=== PATIENT | female | born 1985 | race Caucasian/White ===

== ENCOUNTER 2022-01-22 07:31 | Inpatient (IN) ==
[2022-01-22] MEDS ORDERED: OXYTOCIN 30 UNITS/500 ML BAG IV PRN ×2 (07:40)
--- NOTE | 2022-01-22 07:49 | History & Physical Report ---
Date of Service January 22, 2022 Assessment & Plan (1) Encounter for induction of labor: Plan: Pt is a female at 39 5/7 gestation presenting to L&D for IOL. complicated by AMA, GDM on insulin, and obesity. -Admit patient to L&D for IOL, expect -Rubella immune, GBS-, COVID vaccinated x3 -Q1h glucose checks -COVID negative -Pitocin started as hassan bulb has yet to fall out -epidural prn for pain control -AROM if indicated -routine labs Admission and Anticipated Discharge Date Admission Date: January 22, 2022 History of Present Illness Chief Complaint: IOL Primary Care Provider: NO PCP Pt is a 36 y/o female at 39 5/7 weeks gestation presenting to the L&D unit for IOL. complicated by AMA, GDM on insulin, and obesity. PMH includes migraines controlled with Excedrin. Prior to coming to the hospital, pt was on 70 units of long insulin at night and 20-25 units of short acting insulin at mealtime depending on number of carbs. Pt is having good movement at 2-3 movements per hour and is having cramping. Pt had a hassan placed yesterday for cervical ripening that did not fall out. She did report a small amount of bleeding yesterday from the hassan, but did not have a gush of fluid. Pt is GBS-. Pt would like an epidural when available. 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 Otherwise no additional concerns this morning. Allergies Allergy/AdvReac Type Severity Reaction Status Date / Time No Known Allergies Allergy Verified 01/22/22 07:49 Home Medications Medication Instructions Recorded Confirmed Type prenat.vits,kaylin,xax-laos-bosri 1 tab PO DAILY 08/07/21 01/22/22 History acetone (urine) test (Ketone Urine #50 ea 09/07/21 01/19/22 Rx Test) blood sugar diagnostic ([employer]Touch #150 ea 09/07/21 01/19/22 Rx Verio test strips) blood-glucose meter (OneTouch #1 ea 09/07/21 01/19/22 Rx Verio Flex meter) lancets 33 gauge (OneTouch Delica #150 ea 09/07/21 01/19/22 Rx Plus Lancet) pen needle, diabetic 32 gauge x #50 ea 10/03/21 01/19/22 Rx 5/32" (BD Ultra-Fine Sonali Pen Needle) insulin aspart U-100 100 unit/mL See Rx Instructions SUBCUT TID #15 12/04/21 01/22/22 Rx (3 mL) subcutaneous pen (Novolog ml Flexpen U-100 Insulin aspart) insulin NPH isoph U-100 human 100 70 unit SUBCUT QPM 01/22/22 01/22/22 History unit/mL (3 mL) subcutaneous pen (Novolin N Flexpen) Patient History Medical History (Updated 01/22/22 @ 07:48 by Jed Adorno DO) Abnormal Pap smear of cervix Chicken pox Gestational diabetes On insulin History of COVID-19 06/2021 and 12/2021 PCOS (polycystic ovarian syndrome) Surgical History History of cholecystectomy History of tonsillectomy [place] teeth extracted Family History Mother Mouth cancer Grandmother (Maternal) Breast cancer Grandfather (Maternal) Hypertension High cholesterol Other Cancer Denies family history of Ovarian cancer Prostate cancer Lung cancer Social History Smoking Status: Never smoker Second Hand Exposure: No; Hx Alcohol Use: No Hx Substance Use: No Preferred Language: Pal[place] Communication Ability: Effective Chemistry Instructor Required: No Beliefs That Will Affect Care: None marital status: Single marital status details: Nikko Pabon (36) [phone] Current Living Situation: Significant Other Current Living Situation Comment: Sig other and 1 cat ( FOB changing litter) current occupational status: employed 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 Other Information That Helps Us Care for You: No Feels Safe at Home: Yes Safety Concerns: Feels Safe At This Time Assistive Devices: None Review of Systems All systems reviewed & are unremarkable except as noted in HPI & below Physical Exam Constitutional: WD/WN, vitals as above Eyes: + anicteric sclerae Neck: normal visual inspection Respiratory: normal respiratory effort, lungs clear to auscultation Cardiovascular: Rate/Rhythm: regular rate and regular rhythm Extremities: + edema Gastrointestinal (Abdomen): Percussion/Palpation: abdomen nontender gravid abdomen Musculoskeletal: Head/Neck/Chest: normocephalic and head atraumatic Skin: no rashes, warm and dry Neurologic: moves all extremities Psychiatric: A+Ox3, euthymic affect Genitourinary: Monitoring Accelerations: present heart rate: 135 Good variability Vaginal Exam (per attending): Dilation: 0.5 cm Effacement: 90% Station: -3 Results & Data ([place]) Vital Signs (Past 12 Hours) Vital Signs Pulse BP 01/22/22 07:43 87 138/82 Supervising Physician Co-Signing Physician Notes Resident Physician Supervision Note: I interviewed and examined the patient. Discussed with Dr. Adorno and agree with findings and plan as documented in the note. Any exceptions or clarifications are listed here: at 39 weeks with ama, obesity and insulin requiring gdm who presents to labor and delivery for induction secondary to gdm. US 12/28 AC 71% and efw 73%. hassan placed last night. Unable to remove with gentle tug today. Plan pitocin induction, arom as indicated, epidural on demand. EFW 8-9. Fetus category one. Antipate . check blood sugars hourly. Documented By: Carolyn Gan MD, FACOG Resident Activity Tracking Resident Involvement: Resident Care Provided Care Provided: OB Delivery
[2022-01-22 08:22] LABS: Hematocrit (blood only) 34.5 % (37-47); Hemoglobin 11.6 g/dL (12.0-16.0); Mean Corpuscular Hemoglobin 26.1 pg (25-34); Mean Corpuscular Hgb Conc 33.6 g/dL (32-36); Mean Corpuscular Volume 77.5 fL (80-100); Mean Platelet Volume 10.2 fL (7.4-10.4); Platelet Count 222 K/uL (130-400); RDW Standard Deviation 45.3 fL (36.4-46.3); Red Blood Count 4.45 M/uL (4.2-5.4); White Blood Count 10.76 K/uL (4.8-10.8)
[2022-01-22] MEDS: LACTATED RINGER'S 1,000 ML IV PRN ×3 (09:20→21:59)
[2022-01-22] MEDS ORDERED: SODIUM CHLORIDE 0.9% INJ 10 ML VIAL ONE (13:46)
[2022-01-22] MEDS ORDERED: ePHEDrine sulfate 50 MG/ML AMP ONE (13:46)
[2022-01-22] MEDS ORDERED: fentaNYL citrate 100 MCG/2 ML VIAL ONE ×2 (13:46→23:33)
[2022-01-22] MEDS ORDERED: fentaNYL 2MCG/ML ROPIVACAINE 1.25MG/ML 100 ML BAG EPI ONE (13:47)
[2022-01-22] MEDS ORDERED: BUPIVACAINE 0.25% 30 ML VIAL ONE ×3 (13:47→23:33)
[2022-01-22] MEDS ORDERED: ONDANSETRON INJ 2 MG/ML 2 ML VIAL IV PRN (13:58)
[2022-01-22] MEDS ORDERED: NALOXONE HCL 1 MG in SODIUM CHLORIDE 0.9% 1000ML 1,000 ML IV PRN (13:58)
[2022-01-22] MEDS ORDERED: ePHEDrine sulfate 50 MG/ML AMP IV PRN (13:58)
[2022-01-22] MEDS ORDERED: NALOXONE HCL 0.4 MG/1 ML VIAL/CARP IV PRN (13:58)
[2022-01-22] MEDS ORDERED: diphenhydrAMINE 50 MG/ML VIAL IV PRN (13:58)
[2022-01-22] MEDS ORDERED: NALBUPHINE HCL INJ 10 MG/ML AMP IV PRN (13:58)
--- NOTE | 2022-01-22 13:59 | Anesthesiology Consultation ---
Date of Service January 22, 2022 Assessment & Plan ASA ASA3 Proposed Anesthesia Anesthesia Type: Labor Epidural Risk / Benefits Reviewed With: PT / POA / Parent / Guardian, Accepts Plan and Informed Consent Obtained History Height/Weight Height: 5 ft 4 in Weight: 126 kg Allergies Allergy/AdvReac Type Severity Reaction Status Date / Time No Known Allergies Allergy Verified 01/22/22 07:49 Medications Home Medications Medication Instructions Recorded Confirmed Last Taken prenat.vits,kaylin,hyb-jieu-sfadk 1 tab PO DAILY 08/07/21 01/22/22 01/21/22 23:30 acetone (urine) test (Ketone Urine #50 ea 09/07/21 01/19/22 Unknown Test) blood sugar diagnostic (OneTouch #150 ea 09/07/21 01/19/22 Unknown Verio test strips) blood-glucose meter (OneTouch #1 ea 09/07/21 01/19/22 Unknown Verio Flex meter) lancets 33 gauge (OneTouch Delica #150 ea 09/07/21 01/19/22 Unknown Plus Lancet) pen needle, diabetic 32 gauge x #50 ea 10/03/21 01/19/22 Unknown 5/32" (BD Ultra-Fine Sonali Pen Needle) insulin aspart U-100 100 unit/mL See Rx Instructions SUBCUT TID #15 12/04/21 01/22/22 01/21/22 17:30 (3 mL) subcutaneous pen (Novolog ml Flexpen U-100 Insulin aspart) insulin NPH isoph U-100 human 100 70 unit SUBCUT QPM 01/22/22 01/22/22 01/21/22 23:30 unit/mL (3 mL) subcutaneous pen (Novolin N Flexpen) Active Medications Generic Name Dose Route Start Last Admin Trade Name Freq PRN Reason Stop Dose Admin Oxytocin 30 units in 500 mls @ 11 mls/hr 01/22/22 07:40 01/22/22 12:45 Pitocin IV 01/24/22 07:39 0.66 units/hr .Q24H PRN 11 mls/hr Labor Induction/Augmentation Titration Protocol 0.66 UNITS/HR Lactated Ringer's 1,000 mls @ 125 mls/hr 01/22/22 07:40 01/22/22 09:20 Lr IV 01/24/22 07:39 125 mls/hr .Q8H PRN Administration L&D Protocol Protocol Past Medical History Medical History (Updated 01/22/22 @ 07:48 by Jed Adorno DO) Abnormal Pap smear of cervix Chicken pox Gestational diabetes On insulin History of COVID-19 06/2021 and 12/2021 PCOS (polycystic ovarian syndrome) Exercise / Class Metabolic Activity II 4-5 Yardwork/Stairs/Walk up hill Past Family History Family History Mother Mouth cancer Grandmother (Maternal) Breast cancer Grandfather (Maternal) Hypertension High cholesterol Other Cancer Denies family history of Ovarian cancer Prostate cancer Lung cancer Past Surgical History Surgical History History of cholecystectomy History of tonsillectomy [place] teeth extracted Past Anesthesia History No Hx of Anesthesia Complications and No Family Hx of Anesthesia Complications History of PONV No Hx of PONV and No Hx of Motion Sickness Social History Smoking Status: Never smoker Hx Alcohol Use: No Hx Substance Use: No substance use type: does not use Review of Systems denies fever/cough/ colds/ chest pain/ SOB/ JOHN denies JOHN Physical Exam Vital Signs Last Vital Signs Temp 37.1 C 01/22/22 13:37 Pulse 86 01/22/22 13:28 Resp 18 01/22/22 10:58 BP 125/82 01/22/22 13:28 ENMT Mouth: no TMJ abnormality and no dentition abnormality Thyromental Distance: > or= 3.5 Finger Breadths Mallampati Class: II Neck neck extension not limited Respiratory normal respiratory effort; no respiratory distress Auscultation: lungs clear to auscultation bilaterally Cardiovascular Rate/Rhythm: regular rate and regular rhythm Neurologic moves all extremities Psychiatric Orientation: alert and oriented x 3 Testing Laboratory Results 01/22/22 07:52 Blood Type Cancelled 01/22/22 07:52 Blood Type O Positive 01/22/22 07:52 Antibody Screen Cancelled 01/22/22 07:52 Antibody Screen NEGATIVE 01/22/22 07:52 01/22/22 01/22/22 01/22/22 13:05 13:04 12:23 POC Glucose 70 67 L* 81 01/22/22 01/22/22 01/22/22 12:06 12:02 11:01 POC Glucose 66 L* 67 L* 72 01/22/22 01/22/22 10:05 09:19 POC Glucose 78 76
--- NOTE | 2022-01-22 17:08 | Labor Progress Brief Note ---
Date of Service January 22, 2022 Subjective Required epidural replacement x2, just had second replacement completed and now finally feeling comfortable with numbness of legs that feels different from prior two attempts. Pitocin had not been increased above 11 due to pain. Gordon in place, having been used by nurse to r/o bladder distention as cause of unrelieved pelvic pain prior to last epidural re-do. Assessment & Plan (1) Insulin controlled gestational diabetes mellitus (GDM) during : Plan: AMA, Obesity, A2GDM for IOL at 39+ weeks. Gordon out, pitocin running, now can titrate to adequate MVU given patient comfort. Hourly glucose checks so far have been below range where insulin protocol would begin. Admission and Anticipated Discharge Date Admission Date: January 22, 2022 Physical Exam Genitourinary: Cervix has "collapsed" back to about 4cm, but is thinner at 80% effaced, still high at -2 station. LOF clear. [place] irregular and poorly traced 2/2 obesity Pit @ 11 FHT Cat 1 IUPC and FSE placed to allow better monitoring and maternal repositioning. Initial MVU well below goal of 200-250. Results & Data ([facility]) Vital Signs (Past 12 Hours) Vital Signs Temp Pulse Resp BP Pulse Ox 01/22/22 17:01 86 98 01/22/22 17:00 96 H 109/65 01/22/22 16:58 89 119/71 01/22/22 16:56 93 H 122/73 99 01/22/22 16:54 87 123/70 01/22/22 16:52 85 119/74 01/22/22 16:51 87 99 01/22/22 16:50 92 H 124/77 01/22/22 16:48 89 125/77 01/22/22 16:46 92 H 126/75 98 01/22/22 16:44 93 H 126/75 01/22/22 16:42 86 127/75 01/22/22 16:41 82 97 01/22/22 16:40 86 125/70 01/22/22 16:38 89 125/73 01/22/22 16:37 90 134/72 01/22/22 16:36 89 96 01/22/22 16:35 93 H 136/69 01/22/22 16:32 102 H 139/67 01/22/22 16:31 102 H 98 06/20/22 16:30 95 H 134/68 01/22/22 16:26 88 141/83 H 98 01/22/22 16:09 96 H 155/87 H 01/22/22 16:07 97 H 98 01/22/22 16:02 92 H 98 01/22/22 16:00 90 152/84 H 01/22/22 15:57 91 H 97 01/22/22 15:54 85 148/82 H 01/22/22 15:52 87 97 01/22/22 15:49 90 145/90 H 01/22/22 15:47 89 96 01/22/22 15:44 89 143/82 H 01/22/22 15:42 91 H 97 01/22/22 15:40 89 181/75 H 01/22/22 15:37 87 96 01/22/22 15:33 90 153/82 H 01/22/22 15:32 88 97 01/22/22 15:28 88 147/77 H 01/22/22 15:27 93 H 95 01/22/22 15:24 86 148/77 H 01/22/22 15:22 87 96 01/22/22 15:18 86 154/73 H 01/22/22 15:17 98.6 F 90 18 97 01/22/22 15:16 86 148/70 H 01/22/22 15:14 86 143/79 H 01/22/22 15:12 90 149/89 H 97 01/22/22 15:10 95 H 149/70 H 01/22/22 15:08 90 143/67 H 01/22/22 15:07 90 96 01/22/22 15:06 93 H 153/70 H 01/22/22 15:04 90 147/97 H 01/22/22 15:02 91 H 98 01/22/22 14:57 91 H 97 01/22/22 14:52 92 H 98 01/22/22 14:50 92 H 144/78 H 92 01/22/22 14:48 101 H 155/86 H 01/22/22 14:47 95 H 99 01/22/22 14:46 97 H 149/70 H 01/22/22 14:44 86 161/77 H 01/22/22 14:42 86 160/75 H 97 01/22/22 14:40 87 155/69 H 01/22/22 14:38 83 160/77 H 01/22/22 14:37 87 97 01/22/22 14:36 86 154/72 H 01/22/22 14:34 95 H 141/74 H 01/22/22 14:32 93 H 137/80 98 01/22/22 14:30 90 146/75 H 01/22/22 14:28 92 H 160/82 H 01/22/22 14:27 99 H 99 01/22/22 14:22 98 H 99 01/22/22 14:17 84 98 01/22/22 14:12 84 99 01/22/22 14:07 84 100 01/22/22 14:02 91 H 100 01/22/22 13:37 98.8 F 01/22/22 13:28 86 125/82 01/22/22 12:27 85 122/70 01/22/22 11:27 72 120/58 L 01/22/22 10:58 99.3 F 18 01/22/22 10:28 71 132/79 01/22/22 09:27 75 135/74 01/22/22 07:54 98.8 F 87 18 138/82 01/22/22 07:43 87 138/82 Coding Level of Care Code None Diagnoses Insulin controlled gestational diabetes mellitus (GDM) during O24.414
[2022-01-22] MEDS ORDERED: CALCIUM CARBONATE 500 MG CHEWABLE TAB PO PRN (20:05)
[2022-01-22] MEDS: fentaNYL 2MCG/ML ROPIVACAINE 1.25MG/ML 100 ML BAG EPI PRN ×2 (20:15→23:49)
[2022-01-22] MEDS ORDERED: NURSING L&D Epidural Breakthrough Pain Update ONE (22:38)
--- NOTE | 2022-01-22 23:58 | Communication Note ---
Date of Service: January 22, 2022 I was called due to increasing labor pain. The epidural was bolused with fentanyl 75 mcg and 4mL of 0.25% bupivacaine. VSS throughout. The patient's pain was improved.
--- NOTE | 2022-01-23 00:41 | Labor Progress Brief Note ---
Date of Service January 23, 2022 Subjective Patient with recent visit from Dr. Vicente to have further anesthesia adjustments. States minimal improvement, rating pain 6/10 with contractions. Assessment & Plan (1) Insulin controlled gestational diabetes mellitus (GDM) during : Plan: IOL with good progress, although requiring high doses of pitocin and still not reaching goal MVU. Pain management has been a struggle, but it's also difficult for me to assess how much pain she has vs how much anxiety and whether her expectations of residual discomfort with a good epidural are realistic. At this time she is agreeable to continuing IOL as there is reassuring status, cervical change, and she considers the current level of anesthesia acceptable though not perfect. We discussed that she can request change in mode of delivery if she feels we are unable to provide what she considers adequate pain relief, but that the change to a (which may require spinal or GETA) also changes risks and benefits for her and baby. Admission and Anticipated Discharge Date Admission Date: January 22, 2022 Physical Exam Physical Exam: Noted to have several contractions during my visit without visible signs of pain, able to speak fluidly through them. Cervix 6/100/0 LOF clear continues FHT Cat 1 [place] Q1.5-2min Pit @ 27 MVU 150-160 Results & Data ([facility]) Vital Signs (Past 12 Hours) Vital Signs Temp Pulse Resp BP Pulse Ox 01/23/22 00:32 107 H 98 01/23/22 00:27 99 H 96 01/23/22 00:25 97 H 128/61 01/23/22 00:22 100 H 98 01/23/22 00:17 103 H 96 01/23/22 00:12 101 H 97 01/23/22 00:07 106 H 131/85 96 01/23/22 00:05 93 H 126/60 01/23/22 00:02 94 H 97 01/23/22 00:01 90 116/56 L 01/22/22 23:58 93 H 138/68 01/22/22 23:57 93 H 97 01/22/22 23:55 91 H 145/75 H 01/22/22 23:52 93 H 144/75 H 97 01/22/22 23:49 93 H 145/73 H 01/22/22 23:47 96 H 96 01/22/22 23:46 95 H 118/62 06/20/22 23:43 93 H 127/64 062022 23:42 92 H 95 062022 23:39 96 H 132/62 2022 23:37 100 H 147/85 H 99 0622 23:34 103 H 135/83 22 23:32 98 H 98 062022 23:28 93 H 93 22 23:27 99 H 97 22 23:22 101 H 97 22 23:16 100 H 97 22 23:13 99.5 F 18 01/22/22 23:11 103 H 144/91 H 97 01/22/22 23:06 102 H 98 01/22/22 23:01 96 H 98 01/22/22 22:56 96 H 142/85 H 96 01/22/22 22:51 98 H 96 01/22/22 22:46 96 H 95 01/22/22 22:42 96 H 138/79 01/22/22 22:41 100 H 97 01/22/22 22:36 100 H 97 22 22:31 105 H 97 01/22/22 22:26 106 H 146/89 H 97 2022 22:21 101 H 97 01/22/22 22:16 99 H 97 01/22/22 22:11 97 H 133/75 98 22 22:06 97 H 97 01/22/22 22:01 97 H 96 2022 21:57 96 H 124/67 22 21:56 96 H 97 2022 21:51 95 H 97 2022 21:46 97 H 97 2022 21:41 97 H 129/80 97 2022 21:36 100 H 97 2022 21:31 102 H 96 2022 21:26 101 H 97 2022 21:25 98.8 F 103 H 16 128/71 062022 21:21 102 H 98 062022 21:16 102 H 97 062022 21:11 103 H 118/65 97 2022 21:06 105 H 97 2022 21:01 101 H 98 22 20:56 98 H 129/78 98 0622 20:51 105 H 100 0622 20:46 95 H 99 0622 20:41 95 H 120/65 99 062022 20:36 95 H 99 01/22/22 20:31 98 H 99 01/22/22 20:26 93 H 126/82 99 062022 20:21 95 H 99 01/22/22 20:16 92 H 99 01/22/22 20:11 93 H 99 01/22/22 20:10 90 128/63 06 20:06 98 H 99 01/22/22 20:01 102 H 99 01/22/22 19:56 93 H 144/80 H 99 01/22/22 19:51 95 H 97 01/22/22 19:46 99 H 97 01/22/22 19:41 86 97 01/22/22 19:40 93 H 132/83 01/22/22 19:36 86 97 01/22/22 19:31 84 99 01/22/22 19:26 89 135/85 98 01/22/22 19:21 86 98 01/22/22 19:16 86 99 01/22/22 19:11 86 99 01/22/22 19:10 94 H 130/84 01/22/22 19:06 85 98 01/22/22 19:05 98.8 F 18 01/22/22 19:01 86 98 01/22/22 18:56 81 98 01/22/22 18:55 80 132/80 01/22/22 18:51 84 99 01/22/22 18:46 83 100 2022 18:42 78 122/75 22 18:41 78 100 22 18:36 84 100 22 18:31 84 100 22 18:26 82 127/83 100 01/22/22 18:21 79 99 01/22/22 18:18 86 92 01/22/22 18:16 79 100 01/22/22 18:11 75 99 06 18:10 75 126/69 01/22/22 18:06 77 99 01/22/22 18:01 73 99 01/22/22 18:00 18 01/22/22 17:56 79 125/69 99 01/22/22 17:51 79 100 01/22/22 17:46 81 100 01/22/22 17:45 20 01/22/22 17:41 77 100 01/22/22 17:38 74 118/68 01/22/22 17:36 79 123/68 99 01/22/22 17:34 78 118/66 01/22/22 17:32 81 122/68 01/22/22 17:31 76 100 01/22/22 17:30 75 22 119/70 01/22/22 17:28 74 126/73 01/22/22 17:26 73 127/70 100 01/22/22 17:24 81 121/68 01/22/22 17:22 78 123/68 01/22/22 17:21 76 99 01/22/22 17:20 77 125/70 01/22/22 17:18 80 122/71 01/22/22 17:16 98.4 F 76 18 122/67 99 01/22/22 17:15 83 18 120/69 01/22/22 17:13 84 122/58 L 01/22/22 17:11 87 116/61 97 01/22/22 17:08 96 H 119/65 01/22/22 17:07 89 118/58 L 01/22/22 17:06 86 99 01/22/22 17:04 83 124/71 01/22/22 17:03 81 124/70 01/22/22 17:01 86 98 01/22/22 17:00 96 H 20 109/65 01/22/22 16:58 89 119/71 01/22/22 16:56 93 H 122/73 99 01/22/22 16:54 87 123/70 01/22/22 16:52 85 119/74 01/22/22 16:51 87 99 01/22/22 16:50 92 H 124/77 01/22/22 16:48 89 125/77 01/22/22 16:46 92 H 126/75 98 01/22/22 16:45 20 01/22/22 16:44 93 H 126/75 01/22/22 16:42 86 127/75 01/22/22 16:41 82 97 01/22/22 16:40 86 125/70 01/22/22 16:38 89 125/73 01/22/22 16:37 90 134/72 01/22/22 16:36 89 96 01/22/22 16:35 93 H 136/69 01/22/22 16:32 102 H 139/67 01/22/22 16:31 102 H 98 01/22/22 16:30 95 H 22 134/68 01/22/22 16:26 88 141/83 H 98 01/22/22 16:15 20 01/22/22 16:09 96 H 155/87 H 01/22/22 16:07 97 H 98 01/22/22 16:02 92 H 98 01/22/22 16:00 90 22 152/84 H 01/22/22 15:57 91 H 97 01/22/22 15:54 85 148/82 H 01/22/22 15:52 87 97 01/22/22 15:49 90 145/90 H 01/22/22 15:47 89 96 01/22/22 15:45 22 01/22/22 15:44 89 143/82 H 01/22/22 15:42 91 H 97 01/22/22 15:40 89 181/75 H 01/22/22 15:37 87 96 01/22/22 15:33 90 153/82 H 01/22/22 15:32 88 97 01/22/22 15:30 24 01/22/22 15:28 88 147/77 H 01/22/22 15:27 93 H 95 01/22/22 15:24 86 148/77 H 01/22/22 15:22 87 96 01/22/22 15:18 86 154/73 H 01/22/22 15:17 98.6 F 90 18 97 01/22/22 15:16 86 148/70 H 01/22/22 15:15 22 01/22/22 15:14 86 143/79 H 01/22/22 15:12 90 149/89 H 97 01/22/22 15:10 95 H 149/70 H 01/22/22 15:08 90 143/67 H 01/22/22 15:07 90 96 01/22/22 15:06 93 H 153/70 H 01/22/22 15:04 90 147/97 H 01/22/22 15:02 91 H 98 01/22/22 15:00 20 01/22/22 14:57 91 H 97 01/22/22 14:52 92 H 98 01/22/22 14:50 92 H 144/78 H 92 01/22/22 14:48 101 H 155/86 H 01/22/22 14:47 95 H 99 01/22/22 14:46 97 H 149/70 H 01/22/22 14:45 20 01/22/22 14:44 86 161/77 H 01/22/22 14:42 86 160/75 H 97 01/22/22 14:40 87 155/69 H 01/22/22 14:38 83 160/77 H 01/22/22 14:37 87 97 01/22/22 14:36 86 154/72 H 01/22/22 14:35 18 01/22/22 14:34 95 H 141/74 H 01/22/22 14:32 93 H 137/80 98 01/22/22 14:30 90 146/75 H 01/22/22 14:28 92 H 160/82 H 01/22/22 14:27 99 H 99 01/22/22 14:22 98 H 99 01/22/22 14:17 84 98 01/22/22 14:12 84 99 01/22/22 14:07 84 100 01/22/22 14:02 91 H 100 01/22/22 13:37 98.8 F 01/22/22 13:28 86 125/82 Coding Level of Care Code None Diagnoses Insulin controlled gestational diabetes mellitus (GDM) during O24.414
[2022-01-23] MEDS ORDERED: ePHEDrine sulfate 50 MG/ML AMP ONE (02:09)
[2022-01-23] MEDS ORDERED: fentaNYL 2MCG/ML ROPIVACAINE 1.25MG/ML 100 ML BAG EPI ONE (02:10)
[2022-01-23] MEDS ORDERED: SODIUM CHLORIDE 0.9% INJ 10 ML VIAL ONE (02:10)
[2022-01-23] MEDS ORDERED: fentaNYL citrate 100 MCG/2 ML VIAL ONE ×2 (02:10→05:07)
[2022-01-23] MEDS ORDERED: BUPIVACAINE 0.25% 30 ML VIAL ONE (02:10)
--- NOTE | 2022-01-23 03:32 | Communication Note ---
Date of Service: January 23, 2022 called for 1010 pain. pt is complaining of back pain and cramping in left leg. right leg is not bothering her. she is able to move both extremities. I decided to replace the epidural again because pt did not recieve relief from Dr Jules dailey. Sterile prep and drape after L2-l3 identified. 1% lidocaine infiltrated.. touey advanced until KAYA to air at 6 cm. easy catheter thread. 3mL 1% lido with epi test dose. negative IV/IT. catheter at 11 cm. Pt still has pain but saying legs feel numb and having difficulty raising legs
[2022-01-23] MEDS: fentaNYL 2MCG/ML ROPIVACAINE 1.25MG/ML 100 ML BAG EPI PRN (03:40)
--- NOTE | 2022-01-23 04:28 | Labor Progress Brief Note ---
Date of Service January 23, 2022 Subjective Patient continues to have poor pain control despite repeated visits from anesthesia team members. Currently rating pain 10/10 and asking to change to , "I can't do this anymore, it hurts too much." Assessment & Plan (1) Encounter for induction of labor: Plan: AMA, Obesity, A2GDM (glucose within goal during admission, no insulin protocol yet required) and now maternal request for due to inadequate pain management during labor. She and FOB were counseled both now and at a prior exam regarding the relative risks of changing to delivery, for both mom and baby. She prefers that to continuing attempt of IOL, despite current exam with further progress in dilation. She is aware that we may or may not be able to provide adequate regional anesthesia for and she could require GETA which has increased risks for baby, and she accepts those risks. Will notify anesthesia team of change to , consent patient, and we have already tur latoya off pitocin. Recent elevated BP may be secondary to patient pain and distress, but will also check CMP and repeat CBC preoperatively. Admission and Anticipated Discharge Date Admission Date: January 22, 2022 Physical Exam Genitourinary: 7100/0 Molding and slight caput present MVU 150-175 Pit @ 30 [place] Q2m Fht Cat 1 Results & Data ([facility]) Vital Signs (Past 12 Hours) Vital Signs Temp Pulse Resp BP Pulse Ox 01/23/22 04:17 100 H 96 01/23/22 04:12 103 H 99 01/23/22 04:07 98 H 97 01/23/22 04:02 98 H 96 01/23/22 03:59 92 H 94 01/23/22 03:57 97 H 99 01/23/22 03:55 104 H 173/92 H 01/23/22 03:52 100 H 95 01/23/22 03:47 103 H 97 01/23/22 03:45 88 92 01/23/22 03:42 102 H 98 01/23/22 03:40 100 H 159/84 H 01/23/22 03:37 104 H 96 01/23/22 03:32 103 H 97 01/23/22 03:27 108 H 96 01/23/22 03:25 96 H 150/78 H 01/23/22 03:22 98 H 97 01/23/22 03:21 94 H 94 01/23/22 03:18 98.6 F 18 01/23/22 03:17 103 H 97 01/23/22 03:12 102 H 97 01/23/22 03:10 98 H 156/86 H 01/23/22 03:07 101 H 98 01/23/22 03:05 103 H 93 01/23/22 03:02 97 H 97 01/23/22 02:57 101 H 97 01/23/22 02:53 97 H 151/82 H 01/23/22 02:52 97 H 99 01/23/22 02:48 100 H 147/83 H 01/23/22 02:47 99 H 95 01/23/22 02:42 101 H 98 01/23/22 02:40 105 H 143/80 H 01/23/22 02:37 106 H 97 01/23/22 02:34 105 H 149/71 H 01/23/22 02:32 111 H 99 01/23/22 02:30 110 H 146/71 H 01/23/22 02:27 106 H 98 01/23/22 02:25 105 H 149/75 H 01/23/22 02:22 109 H 97 01/23/22 02:17 105 H 98 01/23/22 02:12 107 H 99 01/23/22 02:11 106 H 172/88 H 01/23/22 02:07 107 H 96 01/23/22 02:05 105 H 148/91 H 01/23/22 02:04 107 H 165/93 H 01/23/22 02:02 109 H 97 01/23/22 01:57 104 H 97 01/23/22 01:54 105 H 156/91 H 01/23/22 01:52 105 H 97 01/23/22 01:47 105 H 96 01/23/22 01:42 108 H 97 01/23/22 01:40 109 H 158/93 H 01/23/22 01:37 113 H 97 01/23/22 01:32 104 H 97 01/23/22 01:27 108 H 97 01/23/22 01:25 103 H 149/77 H 01/23/22 01:22 108 H 98 01/23/22 01:20 98.8 F 18 01/23/22 01:17 104 H 97 01/23/22 01:12 100 H 97 01/23/22 01:10 103 H 151/80 H 01/23/22 01:07 102 H 96 01/23/22 01:02 104 H 96 01/23/22 00:57 101 H 95 01/23/22 00:54 96 H 140/82 01/23/22 00:52 97 H 96 01/23/22 00:47 95 H 96 01/23/22 00:42 94 H 96 01/23/22 00:40 98 H 165/83 H 01/23/22 00:37 100 H 96 01/23/22 00:32 107 H 98 01/23/22 00:27 99 H 96 01/23/22 00:25 97 H 128/61 01/23/22 00:22 100 H 98 01/23/22 00:17 103 H 96 01/23/22 00:12 101 H 97 01/23/22 00:07 106 H 131/85 96 01/23/22 00:05 93 H 126/60 01/23/22 00:02 94 H 97 01/23/22 00:01 90 116/56 L 01/22/22 23:58 93 H 138/68 01/22/22 23:57 93 H 97 01/22/22 23:55 91 H 145/75 H 01/22/22 23:52 93 H 144/75 H 97 01/22/22 23:49 93 H 145/73 H 01/22/22 23:47 96 H 96 01/22/22 23:46 95 H 118/62 01/22/22 23:43 93 H 127/64 01/22/22 23:42 92 H 95 01/22/22 23:39 96 H 132/62 01/22/22 23:37 100 H 147/85 H 99 01/22/22 23:34 103 H 135/83 01/22/22 23:32 98 H 98 01/22/22 23:28 93 H 93 01/22/22 23:27 99 H 97 01/22/22 23:22 101 H 97 01/22/22 23:16 100 H 97 01/22/22 23:13 99.5 F 18 01/22/22 23:11 103 H 144/91 H 97 01/22/22 23:06 102 H 98 0620/22 23:01 96 H 98 0620/22 22:56 96 H 142/85 H 96 0620/22 22:51 98 H 96 0620/22 22:46 96 H 95 0620/22 22:42 96 H 138/79 0620/22 22:41 100 H 97 0620/22 22:36 100 H 97 20/22 22:31 105 H 97 20/22 22:26 106 H 146/89 H 97 20/22 22:21 101 H 97 0620/22 22:16 99 H 97 0620/22 22:11 97 H 133/75 98 0620/22 22:06 97 H 97 0620/22 22:01 97 H 96 20/22 21:57 96 H 124/67 20/22 21:56 96 H 97 20/22 21:51 95 H 97 20/22 21:46 97 H 97 2022 21:41 97 H 129/80 97 20/22 21:36 100 H 97 20/22 21:31 102 H 96 20/22 21:26 101 H 97 20/22 21:25 98.8 F 103 H 16 128/71 20/22 21:21 102 H 98 20/22 21:16 102 H 97 0620/22 21:11 103 H 118/65 97 20/22 21:06 105 H 97 20/22 21:01 101 H 98 20/22 20:56 98 H 129/78 98 20/22 20:51 105 H 100 0620/22 20:46 95 H 99 0620/22 20:41 95 H 120/65 99 06/20/22 20:36 95 H 99 0620/22 20:31 98 H 99 06/20/22 20:26 93 H 126/82 99 06/20/22 20:21 95 H 99 06/20/22 20:16 92 H 99 06/20/22 20:11 93 H 99 06/20/22 20:10 90 128/63 0620/22 20:06 98 H 99 0620/22 20:01 102 H 99 20/22 19:56 93 H 144/80 H 99 06/20/22 19:51 95 H 97 01/22/22 19:46 99 H 97 01/22/22 19:41 86 97 01/22/22 19:40 93 H 132/83 01/22/22 19:36 86 97 01/22/22 19:31 84 99 01/22/22 19:26 89 135/85 98 01/22/22 19:21 86 98 01/22/22 19:16 86 99 01/22/22 19:11 86 99 01/22/22 19:10 94 H 130/84 01/22/22 19:06 85 98 01/22/22 19:05 98.8 F 18 01/22/22 19:01 86 98 01/22/22 18:56 81 98 01/22/22 18:55 80 132/80 01/22/22 18:51 84 99 01/22/22 18:46 83 100 01/22/22 18:42 78 122/75 01/22/22 18:41 78 100 01/22/22 18:36 84 100 01/22/22 18:31 84 100 01/22/22 18:26 82 127/83 100 01/22/22 18:21 79 99 01/22/22 18:18 86 92 01/22/22 18:16 79 100 01/22/22 18:11 75 99 01/22/22 18:10 75 126/69 01/22/22 18:06 77 99 01/22/22 18:01 73 99 01/22/22 18:00 18 01/22/22 17:56 79 125/69 99 01/22/22 17:51 79 100 01/22/22 17:46 81 100 01/22/22 17:45 20 01/22/22 17:41 77 100 01/22/22 17:38 74 118/68 01/22/22 17:36 79 123/68 99 01/22/22 17:34 78 118/66 01/22/22 17:32 81 122/68 01/22/22 17:31 76 100 01/22/22 17:30 75 22 119/70 01/22/22 17:28 74 126/73 01/22/22 17:26 73 127/70 100 01/22/22 17:24 81 121/68 01/22/22 17:22 78 123/68 01/22/22 17:21 76 99 01/22/22 17:20 77 125/70 01/22/22 17:18 80 122/71 01/22/22 17:16 98.4 F 76 18 122/67 99 01/22/22 17:15 83 18 120/69 01/22/22 17:13 84 122/58 L 01/22/22 17:11 87 116/61 97 01/22/22 17:08 96 H 119/65 01/22/22 17:07 89 118/58 L 01/22/22 17:06 86 99 01/22/22 17:04 83 124/71 01/22/22 17:03 81 124/70 01/22/22 17:01 86 98 01/22/22 17:00 96 H 20 109/65 01/22/22 16:58 89 119/71 01/22/22 16:56 93 H 122/73 99 01/22/22 16:54 87 123/70 01/22/22 16:52 85 119/74 01/22/22 16:51 87 99 01/22/22 16:50 92 H 124/77 01/22/22 16:48 89 125/77 01/22/22 16:46 92 H 126/75 98 01/22/22 16:45 20 01/22/22 16:44 93 H 126/75 01/22/22 16:42 86 127/75 01/22/22 16:41 82 97 01/22/22 16:40 86 125/70 01/22/22 16:38 89 125/73 01/22/22 16:37 90 134/72 01/22/22 16:36 89 96 01/22/22 16:35 93 H 136/69 01/22/22 16:32 102 H 139/67 01/22/22 16:31 102 H 98 01/22/22 16:30 95 H 22 134/68 01/22/22 16:26 88 141/83 H 98 Coding Level of Care Code None Diagnoses Encounter for induction of labor Z34.90
[2022-01-23] MEDS ORDERED: LACTATED RINGER'S 1,000 ML IV SCH (04:30)
[2022-01-23] MEDS: LACTATED RINGER'S 1,000 ML IV PRN (04:38)
[2022-01-23] MEDS ORDERED: CITRIC ACID/SODIUM CITRATE 15 ML UDC PO SCH (04:45)
[2022-01-23 04:55] LABS: Hematocrit (blood only) 34.5 % (37-47); Hemoglobin 11.3 g/dL (12.0-16.0); Mean Corpuscular Hemoglobin 25.1 pg (25-34); Mean Corpuscular Volume 76.5 fL (80-100); Mean Platelet Volume 9.8 fL (7.4-10.4); Platelet Count 200 K/uL (130-400); RDW Coefficient of Variation 16.2 % (11.5-14.5); RDW Standard Deviation 44.8 fL (36.4-46.3); Red Blood Count 4.51 M/uL (4.2-5.4); White Blood Count 15.02 K/uL (4.8-10.8)
[2022-01-23] MEDS ORDERED: OXYTOCIN 10 UNITS/ML 10ML VIAL ONE (05:07)
[2022-01-23] MEDS ORDERED: MoRPHine SULFATE PF 1 MG/ML 10 ML AMP/VIAL ONE (05:07)
[2022-01-23 05:12] LABS: Mean Corpuscular Hgb Conc 32.8 g/dL (32-36)
[2022-01-23 05:21] LABS: Albumin Globulin Ratio 1.1 (0.9-2); Albumin Level 3.3 gm/dl (3.4-5.0); BUN Creatinine Ratio 15.9 (10-20); Bilirubin,Total 0.7 mg/dl (0.2-1.0); Calcium 8.9 mg/dl (8.5-10.1); Creatinine Clr Calc Pharmacy 163.7 ml/min; Est GFR (African American) 134.7 ml/min; Est GFR (Non-African American) 116.2 ml/min; Total Protein 6.3 gm/dl (6.0-8.3)
[2022-01-23] MEDS ORDERED: DC INTRASPINAL MORPHINE SCH (06:30)
[2022-01-23] MEDS ORDERED: MoRPHine SULFATE PF 1 MG/ML 10 ML AMP/VIAL INT SPINAL ONE (06:30)
[2022-01-23] MEDS ORDERED: SODIUM CHLORIDE 0.9% 1000ML 1,000 ML IV SCH (06:30)
[2022-01-23] MEDS ORDERED: KETOROLAC 30 MG/ML VIAL IV PRN (06:30)
[2022-01-23] MEDS ORDERED: ePHEDrine sulfate 50 MG/ML AMP IV PRN (06:30)
[2022-01-23] MEDS ORDERED: MoRPHine SULFATE 2 MG/ML CARP IV PRN (06:30)
[2022-01-23] MEDS ORDERED: diphenhydrAMINE 50 MG/ML VIAL IV PRN (06:30)
[2022-01-23] MEDS ORDERED: ONDANSETRON INJ 2 MG/ML 2 ML VIAL IV PRN (06:30)
[2022-01-23] MEDS ORDERED: NALOXONE HCL 0.08 MG in SYRINGE 1.8 ML IV PRN (06:30)
[2022-01-23] MEDS ORDERED: NALOXONE HCL 0.4 MG/1 ML VIAL/CARP IV PRN (06:30)
[2022-01-23] MEDS ORDERED: LACTATED RINGER'S 500 ML IV PRN (06:30)
[2022-01-23] MEDS ORDERED: NO NARCOTICS OR SEDATIVES SCH (06:30)
[2022-01-23] MEDS ORDERED: NALBUPHINE HCL INJ 10 MG/ML AMP IV PRN (06:30)
[2022-01-23] MEDS ORDERED: NALOXONE HCL 1 MG in SODIUM CHLORIDE 0.9% 1000ML 1,000 ML IV PRN (06:30)
[2022-01-23] MEDS ORDERED: ONDANSETRON INJ 2 MG/ML 2 ML VIAL ONE (08:41)
[2022-01-23] MEDS ORDERED: KETOROLAC 30 MG/ML VIAL ONE (08:41)
--- NOTE | 2022-01-23 08:54 | Operative Report ---
PG Post Operative Report Pre & Post Diagnosis Operation Date: 01/23/22 04:40 Pre-Op Diagnosis: PATRICIA @ 39w6d Obesity Advanced Maternal Age A2 Gestational Diabetes Maternal Request for Post-Op Diagnosis: Same I identified the patient and participated in the time-out.: Yes Procedure Operation Date: 01/23/22 04:40 Actual Procedures Primary Low Transverse Section Surgeon Yamilex Rosario MD Adult Crossing Guard Ari KING Estimated Blood Loss 500 Findings Consistent with Post-Op Diagnosis Specimens Placenta, Cord blood Anesthesia Type Spinal Complications none Disposition Accompanied Patient To Recovery: Yes Disposition: L&D Description of Procedure The patient was placed operating table in the supine position with a leftward tilt. She was prepped and draped in standard sterile fashion. The anesthetic was tested and found to be adequate. A time-out was held, identifying correct patient, procedure, positioning and preoperative antibiotics. There were no concerns. A Pfannenstiel skin incision was made with a knife and taken down to the underlying layer of fascia. The fascia was incised in the midline with the knife and taken out laterally with scissors. The superior edge of the fascial incision was grasped, elevated and dissected off the underlying rectus both superiorly and inferiorly. The muscles were bluntly in the midline. The peritoneum was entered bluntly. The incision was then stretched. The Fabio O-Ring and bladder retractor were placed. The vesicouterine peritoneum was identified, entered with scissors and taken out laterally with scissors. The b ladder flap was created digitally. A hysterotomy incision was created transversely in the lower uterine segment, final entry being accomplished in a blunt manner with the traveling operator's fingers. Clear amniotic fluid was encountered. The traveling operator's hand was used to elevate the head to the hysterotomy. The head was delivered using mild fundal pressure, and the shoulders and body followed without difficulty. The cord was clamped and cut and the was then handed off to the awaiting infrastructure tech. Cord blood was obtained. The placenta was Manually extracted. The uterus was exteriorized and cleared of all clot and debris with moistened laparotomy sponges. The hysterotomy incision was repaired in two layers, the first in a running locked layer, the second in an imbricating layer. Several additional nxsruc-qt-[id number] sutures were placed with remnants of vicryl and a piece of 0-chromic to control oozing areas. The ovaries and tubes were seen to be normal bilaterally. The uterus was gently replaced in the abdomen, and the gutters were cleared of clot and debris. A final inspection of the hysterotomy revealed good hemostasis. The Faboi was removed, and the rectus muscles were allowed to reapproximate naturally. The fascia was then reapproximated with 1 Vicryl in a running nonlocked manner. The fascia was examined and found to be free of defect following closure. The chowdhury bcutaneous tissue was copiously irrigated and reapproximated with 0-chromic, then the skin edges were closed with 4-0 monocryl in a subcuticular fashion. A dermabond dressing was applied. The hassan was found to be draining clear yellow urine at completion of the procedure. I attest to the content of the Intraoperative Record and any orders documented therein. Any exceptions are noted below. I attest to the content of the Intraoperative Record and any orders documented therein. Any exceptions are noted below.
[2022-01-23] MEDS ORDERED: HYDROCORTISONE ACETATE 25 MG SUPP PR PRN (09:31)
[2022-01-23] MEDS ORDERED: SENNA 8.6 MG TAB PO PRN (09:31)
[2022-01-23] MEDS ORDERED: MAGNESIUM HYDROXIDE SUSP 30 ML UDC PO PRN (09:31)
[2022-01-23] MEDS ORDERED: DIPHTHERIA/TETANUS/PERTUSSIS 0.5 ML SYR/VIAL IM ONE (09:31)
[2022-01-23] MEDS ORDERED: BENZOCAINE 20% AER SPR 82.5 GM CAN EXT PRN (09:31)
--- NOTE | 2022-01-23 09:46 | Anesthesia Procedure Note ---
Date of Service January 23, 2022 Anesthesia Post Epidural Note Vital Signs Vital Signs: Temp Pulse Resp BP Pulse Ox 98.6 F 66 18 117/55 L 99 01/23/22 09:05 01/23/22 09:43 01/23/22 09:05 01/23/22 09:38 01/23/22 09:43 Pain Intensity Abdomen: Pain Intensity: 10 Back: Pain Intensity: 10 Notes Mental Status: alert / awake / arousable and participated in evaluation Nausea / Vomiting: adequately controlled Pain: adequately controlled Airway Patency, RR, SpO2: stable & adequate BP & HR: stable & adequate Hydration State: stable & adequate Neuraxial Anesthesia: was administered and sensory block is resolving Anesthetic Complications: no major complications apparent and Pt Satisfied with anesthetic care Epidural: Removed without complications and With tip intact
--- NOTE | 2022-01-23 09:47 | Anesthesiology Progress Note ---
Date of Service January 23, 2022 Anesthesia Post Procedure Vital Signs Vital Signs: Temp Pulse Resp BP Pulse Ox 01/23/22 09:43 66 99 01/23/22 09:38 66 117/55 L 99 01/23/22 09:33 75 99 01/23/22 09:29 75 101/55 L 01/23/22 09:28 73 100 01/23/22 09:23 81 99 01/23/22 09:18 79 114/59 L 100 01/23/22 09:13 80 100 01/23/22 09:09 80 110/56 L 01/23/22 09:08 79 100 01/23/22 09:05 98.6 F 18 01/23/22 09:03 82 100 01/23/22 09:00 87 138/58 L 01/23/22 08:58 91 H 100 01/23/22 07:21 97.5 F L 18 01/23/22 07:17 112 H 95 01/23/22 07:12 102 H 96 01/23/22 07:08 103 H 131/71 01/23/22 07:07 103 H 97 01/23/22 07:02 105 H 98 01/23/22 06:57 102 H 97 01/23/22 06:53 100 H 132/70 01/23/22 06:52 101 H 96 01/23/22 06:51 102 H 93 01/23/22 06:47 103 H 98 01/23/22 06:45 102 H 93 01/23/22 06:42 106 H 97 01/23/22 06:40 100 H 131/69 01/23/22 06:37 103 H 97 01/23/22 06:32 103 H 96 01/23/22 06:27 102 H 96 01/23/22 06:23 103 H 134/73 01/23/22 06:22 102 H 98 01/23/22 06:17 101 H 97 01/23/22 06:13 101 H 93 01/23/22 06:12 100 H 97 01/23/22 06:09 105 H 134/73 01/23/22 06:07 106 H 97 01/23/22 06:06 101 H 94 01/23/22 06:02 103 H 98 01/23/22 05:57 108 H 96 01/23/22 05:54 101 H 133/73 01/23/22 05:52 107 H 98 01/23/22 05:51 103 H 93 01/23/22 05:47 105 H 97 01/23/22 05:42 101 H 96 01/23/22 05:40 93 H 93 01/23/22 05:38 100 H 138/73 01/23/22 05:37 103 H 98 01/23/22 05:32 98.2 F 96 H 18 98 01/23/22 05:28 97 H 92 01/23/22 05:27 104 H 98 01/23/22 05:24 98 H 135/73 01/23/22 05:22 103 H 98 01/23/22 05:17 102 H 97 01/23/22 05:12 98 H 95 01/23/22 05:08 97 H 149/76 H 01/23/22 05:07 98 H 97 01/23/22 05:04 100 H 94 01/23/22 05:02 99 H 97 01/23/22 04:57 104 H 97 01/23/22 04:55 99 H 135/76 01/23/22 04:52 101 H 96 01/23/22 04:47 107 H 98 01/23/22 04:42 96 H 97 01/23/22 04:40 97 H 92 01/23/22 04:38 93 H 150/74 H 01/23/22 04:37 104 H 97 01/23/22 04:32 96 H 96 01/23/22 04:29 95 H 94 01/23/22 04:27 99 H 99 01/23/22 04:25 94 H 156/81 H 01/23/22 04:22 98 H 97 01/23/22 04:17 100 H 96 01/23/22 04:12 103 H 99 01/23/22 04:07 98 H 97 01/23/22 04:02 98 H 96 01/23/22 03:59 92 H 94 01/23/22 03:57 97 H 99 01/23/22 03:55 104 H 173/92 H 01/23/22 03:52 100 H 95 01/23/22 03:47 103 H 97 01/23/22 03:45 88 92 01/23/22 03:42 102 H 98 01/23/22 03:40 100 H 159/84 H 01/23/22 03:37 104 H 96 01/23/22 03:32 103 H 97 01/23/22 03:27 108 H 96 01/23/22 03:25 96 H 150/78 H 01/23/22 03:22 98 H 97 01/23/22 03:21 94 H 94 01/23/22 03:18 98.6 F 18 01/23/22 03:17 103 H 97 01/23/22 03:12 102 H 97 01/23/22 03:10 98 H 156/86 H 01/23/22 03:07 101 H 98 01/23/22 03:05 103 H 93 01/23/22 03:02 97 H 97 01/23/22 02:57 101 H 97 01/23/22 02:53 97 H 151/82 H 01/23/22 02:52 97 H 99 01/23/22 02:48 100 H 147/83 H 01/23/22 02:47 99 H 95 01/23/22 02:42 101 H 98 01/23/22 02:40 105 H 143/80 H 01/23/22 02:37 106 H 97 01/23/22 02:34 105 H 149/71 H 01/23/22 02:32 111 H 99 01/23/22 02:30 110 H 146/71 H 01/23/22 02:27 106 H 98 01/23/22 02:25 105 H 149/75 H 01/23/22 02:22 109 H 97 01/23/22 02:17 105 H 98 01/23/22 02:12 107 H 99 01/23/22 02:11 106 H 172/88 H 01/23/22 02:07 107 H 96 01/23/22 02:05 105 H 148/91 H 01/23/22 02:04 107 H 165/93 H 01/23/22 02:02 109 H 97 01/23/22 01:57 104 H 97 01/23/22 01:54 105 H 156/91 H 01/23/22 01:52 105 H 97 01/23/22 01:47 105 H 96 01/23/22 01:42 108 H 97 01/23/22 01:40 109 H 158/93 H 01/23/22 01:37 113 H 97 01/23/22 01:32 104 H 97 0621/22 01:27 108 H 97 01/23/22 01:25 103 H 149/77 H 01/23/22 01:22 108 H 98 01/23/22 01:20 98.8 F 18 01/23/22 01:17 104 H 97 01/23/22 01:12 100 H 97 01/23/22 01:10 103 H 151/80 H 01/23/22 01:07 102 H 96 01/23/22 01:02 104 H 96 01/23/22 00:57 101 H 95 01/23/22 00:54 96 H 140/82 01/23/22 00:52 97 H 96 01/23/22 00:47 95 H 96 01/23/22 00:42 94 H 96 01/23/22 00:40 98 H 165/83 H 01/23/22 00:37 100 H 96 01/23/22 00:32 107 H 98 01/23/22 00:27 99 H 96 01/23/22 00:25 97 H 128/61 01/23/22 00:22 100 H 98 01/23/22 00:17 103 H 96 01/23/22 00:12 101 H 97 01/23/22 00:07 106 H 131/85 96 01/23/22 00:05 93 H 126/60 01/23/22 00:02 94 H 97 01/23/22 00:01 90 116/56 L 01/22/22 23:58 93 H 138/68 01/22/22 23:57 93 H 97 01/22/22 23:55 91 H 145/75 H 01/22/22 23:52 93 H 144/75 H 97 01/22/22 23:49 93 H 145/73 H 01/22/22 23:47 96 H 96 01/22/22 23:46 95 H 118/62 01/22/22 23:43 93 H 127/64 01/22/22 23:42 92 H 95 01/22/22 23:39 96 H 132/62 01/22/22 23:37 100 H 147/85 H 99 01/22/22 23:34 103 H 135/83 01/22/22 23:32 98 H 98 01/22/22 23:28 93 H 93 01/22/22 23:27 99 H 97 06/20/22 23:22 101 H 97 0620/22 23:16 100 H 97 0620/22 23:13 99.5 F 18 0620/22 23:11 103 H 144/91 H 97 0620/22 23:06 102 H 98 062022 23:01 96 H 98 0620/22 22:56 96 H 142/85 H 96 20/22 22:51 98 H 96 062022 22:46 96 H 95 2022 22:42 96 H 138/79 062022 22:41 100 H 97 0620/22 22:36 100 H 97 20/22 22:31 105 H 97 2022 22:26 106 H 146/89 H 97 2022 22:21 101 H 97 2022 22:16 99 H 97 2022 22:11 97 H 133/75 98 2022 22:06 97 H 97 2022 22:01 97 H 96 2022 21:57 96 H 124/67 20/22 21:56 96 H 97 20/22 21:51 95 H 97 20/22 21:46 97 H 97 20/22 21:41 97 H 129/80 97 20/22 21:36 100 H 97 20/22 21:31 102 H 96 20/22 21:26 101 H 97 20/22 21:25 98.8 F 103 H 16 128/71 20/22 21:21 102 H 98 20/22 21:16 102 H 97 0620/22 21:11 103 H 118/65 97 20/22 21:06 105 H 97 0620/22 21:01 101 H 98 0620/22 20:56 98 H 129/78 98 0620/22 20:51 105 H 100 0620/22 20:46 95 H 99 06/20/22 20:41 95 H 120/65 99 06/20/22 20:36 95 H 99 06/20/22 20:31 98 H 99 0620/22 20:26 93 H 126/82 99 0620/22 20:21 95 H 99 06/20/22 20:16 92 H 99 01/22/22 20:11 93 H 99 01/22/22 20:10 90 128/63 01/22/22 20:06 98 H 99 01/22/22 20:01 102 H 99 01/22/22 19:56 93 H 144/80 H 99 01/22/22 19:51 95 H 97 01/22/22 19:46 99 H 97 01/22/22 19:41 86 97 01/22/22 19:40 93 H 132/83 01/22/22 19:36 86 97 01/22/22 19:31 84 99 01/22/22 19:26 89 135/85 98 01/22/22 19:21 86 98 01/22/22 19:16 86 99 01/22/22 19:11 86 99 01/22/22 19:10 94 H 130/84 01/22/22 19:06 85 98 01/22/22 19:05 98.8 F 18 01/22/22 19:01 86 98 01/22/22 18:56 81 98 01/22/22 18:55 80 132/80 01/22/22 18:51 84 99 01/22/22 18:46 83 100 01/22/22 18:42 78 122/75 01/22/22 18:41 78 100 01/22/22 18:36 84 100 01/22/22 18:31 84 100 01/22/22 18:26 82 127/83 100 01/22/22 18:21 79 99 01/22/22 18:18 86 92 01/22/22 18:16 79 100 01/22/22 18:11 75 99 01/22/22 18:10 75 126/69 01/22/22 18:06 77 99 01/22/22 18:01 73 99 01/22/22 18:00 18 01/22/22 17:56 79 125/69 99 01/22/22 17:51 79 100 01/22/22 17:46 81 100 01/22/22 17:45 20 01/22/22 17:41 77 100 01/22/22 17:38 74 118/68 2022 17:36 79 123/68 99 01/22/22 17:34 78 118/66 01/22/22 17:32 81 122/68 01/22/22 17:31 76 100 01/22/22 17:30 75 22 119/70 01/22/22 17:28 74 126/73 01/22/22 17:26 73 127/70 100 01/22/22 17:24 81 121/68 01/22/22 17:22 78 123/68 01/22/22 17:21 76 99 01/22/22 17:20 77 125/70 01/22/22 17:18 80 122/71 01/22/22 17:16 98.4 F 76 18 122/67 99 01/22/22 17:15 83 18 120/69 01/22/22 17:13 84 122/58 L 01/22/22 17:11 87 116/61 97 01/22/22 17:08 96 H 119/65 01/22/22 17:07 89 118/58 L 01/22/22 17:06 86 99 01/22/22 17:04 83 124/71 01/22/22 17:03 81 124/70 01/22/22 17:01 86 98 01/22/22 17:00 96 H 20 109/65 01/22/22 16:58 89 119/71 01/22/22 16:56 93 H 122/73 99 01/22/22 16:54 87 123/70 01/22/22 16:52 85 119/74 01/22/22 16:51 87 99 01/22/22 16:50 92 H 124/77 01/22/22 16:48 89 125/77 01/22/22 16:46 92 H 126/75 98 01/22/22 16:45 20 01/22/22 16:44 93 H 126/75 01/22/22 16:42 86 127/75 01/22/22 16:41 82 97 01/22/22 16:40 86 125/70 01/22/22 16:38 89 125/73 01/22/22 16:37 90 134/72 01/22/22 16:36 89 96 01/22/22 16:35 93 H 136/69 01/22/22 16:32 102 H 139/67 01/22/22 16:31 102 H 98 01/22/22 16:30 95 H 22 134/68 01/22/22 16:26 88 141/83 H 98 01/22/22 16:15 20 01/22/22 16:09 96 H 155/87 H 01/22/22 16:07 97 H 98 01/22/22 16:02 92 H 98 01/22/22 16:00 90 22 152/84 H 01/22/22 15:57 91 H 97 01/22/22 15:54 85 148/82 H 01/22/22 15:52 87 97 01/22/22 15:49 90 145/90 H 01/22/22 15:47 89 96 01/22/22 15:45 22 01/22/22 15:44 89 143/82 H 01/22/22 15:42 91 H 97 01/22/22 15:40 89 181/75 H 01/22/22 15:37 87 96 01/22/22 15:33 90 153/82 H 01/22/22 15:32 88 97 01/22/22 15:30 24 01/22/22 15:28 88 147/77 H 01/22/22 15:27 93 H 95 01/22/22 15:24 86 148/77 H 01/22/22 15:22 87 96 01/22/22 15:18 86 154/73 H 01/22/22 15:17 98.6 F 90 18 97 01/22/22 15:16 86 148/70 H 01/22/22 15:15 22 01/22/22 15:14 86 143/79 H 01/22/22 15:12 90 149/89 H 97 01/22/22 15:10 95 H 149/70 H 01/22/22 15:08 90 143/67 H 01/22/22 15:07 90 96 01/22/22 15:06 93 H 153/70 H 01/22/22 15:04 90 147/97 H 01/22/22 15:02 91 H 98 01/22/22 15:00 20 01/22/22 14:57 91 H 97 01/22/22 14:52 92 H 98 01/22/22 14:50 92 H 144/78 H 92 01/22/22 14:48 101 H 155/86 H 01/22/22 14:47 95 H 99 01/22/22 14:46 97 H 149/70 H 01/22/22 14:45 20 01/22/22 14:44 86 161/77 H 01/22/22 14:42 86 160/75 H 97 01/22/22 14:40 87 155/69 H 01/22/22 14:38 83 160/77 H 01/22/22 14:37 87 97 01/22/22 14:36 86 154/72 H 01/22/22 14:35 18 01/22/22 14:34 95 H 141/74 H 01/22/22 14:32 93 H 137/80 98 01/22/22 14:30 90 146/75 H 01/22/22 14:28 92 H 160/82 H 01/22/22 14:27 99 H 99 01/22/22 14:22 98 H 99 01/22/22 14:17 84 98 01/22/22 14:12 84 99 01/22/22 14:07 84 100 01/22/22 14:02 91 H 100 01/22/22 13:37 98.8 F 01/22/22 13:28 86 125/82 01/22/22 12:27 85 122/70 01/22/22 11:27 72 120/58 L 01/22/22 10:58 99.3 F 18 01/22/22 10:28 71 132/79 Pain Intensity Abdomen: Pain Intensity: 10 Back: Pain Intensity: 10 Transfer of Care Handoff Completed per policy Notes Mental Status: alert / awake / arousable and participated in evaluation Patient Amnestic to Procedure: Yes Nausea / Vomiting: adequately controlled Pain: adequately controlled Airway Patency, RR, SpO2: stable & adequate BP & HR: stable & adequate Hydration State: stable & adequate Neuraxial Anesthesia: was administered and sensory block is resolving Anesthetic Complications: no major complications apparent and Pt Satisfied with anesthetic care
[2022-01-23] MEDS: OXYTOCIN 20 UNITS in LACTATED RINGER'S 1,000 ML IV SCH ×2 (10:17→18:00)
[2022-01-23] MEDS: SIMETHICONE 80 MG CHEW PO SCH ×3 (13:05→21:38)
[2022-01-23] MEDS: DOCUSATE SODIUM 100 MG CAP PO SCH (21:38)
[2022-01-24] MEDS ORDERED: KETOROLAC 30 MG/ML VIAL IV PRN (00:31)
[2022-01-24] MEDS ORDERED: MEPERIDINE HCL 50 MG/ML CARP IV PRN (00:31)
[2022-01-24] MEDS ORDERED: PROMETHAZINE HCL 25 MG in SODIUM CHLORIDE 0.9% 50 ML IV PRN (00:31)
[2022-01-24] MEDS ORDERED: diphenhydrAMINE Capsule 25 MG CAP PO PRN (00:31)
[2022-01-24] MEDS ORDERED: ONDANSETRON INJ 2 MG/ML 2 ML VIAL IV PRN (00:31)
[2022-01-24] MEDS ORDERED: diphenhydrAMINE 50 MG/ML VIAL IV PRN (00:31)
[2022-01-24] MEDS ORDERED: LACTATED RINGER'S 1,000 ML IV SCH (02:00)
--- NOTE | 2022-01-24 06:16 | Obstetrical Progress Note ---
Date of Service January 24, 2022 Assessment & Plan (1) Encounter for care and examination after delivery: Plan: Patient is a 36-year-old now female status post postop day 1. -GBS(-), Rubella immune, O+, Antibody negative -Continue routine care -Pain control with tylenol, Ibuprofen, oxycodone when able -Ambulation as tolerated and encouraged -Encouraged , discuss with counsellor if necessary, continue supplementing with formula -Hgb 11.3 -OB f/u appointment in [address] Rosario Admission and Anticipated Discharge Date Admission Date: January 22, 2022 Supervising Physician Co-Signing Physician Notes Resident Physician Supervision Note: I was present with Dr. Adorno during the history and exam. I discussed the case with the resident and agree with the findings and plan as documented in the note. Any exceptions or clarifications are listed here: [None] Documented By: Kimi Chapman MD, FACOG Subjective Patient is a 36-year-old now G1, P1 female status post postop day 1. Patient overall doing well. Having 3 of 10 pain controlled with Toradol, currently on Toradol due to recent use of epidural morphine. Patient is formula feeding by preference. Lochia moderate. Catheter has been removed. Patient is able to ambulate albeit she is mostly been sleeping since delivery. Did have a new oxygen requirement yesterday but is on room air now. Reports passing gas but no bowel movement as of yet. Urinating well. Denies fever, chills, chest pain, shortness of breath, nausea, vomiting, calf pain, or headache. No other complaints at this time. Review of Systems Review of Systems: All systems reviewed & are unremarkable except as noted in HPI & below Physical Exam Constitutional: WD/WN, vitals as above + morbidly obese Eyes: + anicteric sclerae Neck: trachea midline, no thyromegaly Respiratory: normal respiratory effort, lungs clear to auscultation Cardiovascular: Rate/Rhythm: regular rate and regular rhythm Extremities: + edema Gastrointestinal (Abdomen): normal bowel sounds, soft, nontender, no hepatosplenomegaly Musculoskeletal: Head/Neck/Chest: normocephalic and head atraumatic Skin: no rashes, warm and dry Surgical incision noted at the inferior abdomen that is clean without surrounding erythema or discharge. Neurologic: moves all extremities Psychiatric: A+Ox3, euthymic affect Genitourinary: Uterus palpated at the level of the umbilicus, firm Results & Data ([facility]) Vital Signs (Past 12 Hours) Vital Signs Temp Pulse Resp BP Pulse Ox 01/24/22 04:45 36.6 C 85 18 111/70 93 01/24/22 00:30 18 93 01/23/22 23:15 36.8 C 84 18 91/56 L 96 01/23/22 22:30 18 95 01/23/22 21:20 36.6 C 84 18 99/64 L 99 01/23/22 20:00 20 99 01/23/22 18:30 16 99
[2022-01-24] MEDS: DOCUSATE SODIUM 100 MG CAP PO SCH ×2 (08:06→21:14)
[2022-01-24] MEDS: SIMETHICONE 80 MG CHEW PO SCH ×4 (08:06→21:14)
[2022-01-24] MEDS: IBUPROFEN 600 MG TAB PO PRN ×3 (08:06→23:04)
[2022-01-24] MEDS: PRENATAL VITAMIN 1 TAB PO SCH (08:07)
[2022-01-24] MEDS: oxyCODONE/ACETAMINOPHEN 5mg/325mg TAB PO PRN ×2 (08:07→23:04)
[2022-01-24] MEDS: FERROUS SULFATE 325 MG TAB PO SCH (08:09)
[2022-01-24 09:28] LABS: Basophils # (auto) 0.01 K/uL (0-0.2); Basophils % (auto) 0.1 %; Eosinophils # (auto) 0.04 K/uL (0-0.5); Eosinophils % (auto) 0.4 %; Hematocrit (blood only) 30.4 % (37-47); Hemoglobin 10.3 g/dL (12.0-16.0); Immature Granulocytes # (auto) 0.04 K/uL (0.00-0.02); Immature Granulocytes % (auto) 0.4 %; Lymphocytes # (auto) 1.39 K/uL (1.2-3.4); Lymphocytes % (auto) 13.2 %; Mean Corpuscular Hemoglobin 26.7 pg (25-34); Mean Corpuscular Hgb Conc 33.9 g/dL (32-36); Mean Corpuscular Volume 78.8 fL (80-100); Monocytes # (auto) 0.76 K/uL (0.11-0.59); Monocytes % (auto) 7.2 %; Neutrophils # (auto) 8.33 K/uL (1.4-6.5); Neutrophils % (auto) 78.7 %; Platelet Count 187 K/uL (130-400); RDW Coefficient of Variation 16.6 % (11.5-14.5); RDW Standard Deviation 47.8 fL (36.4-46.3); Red Blood Count 3.86 M/uL (4.2-5.4); White Blood Count 10.57 K/uL (4.8-10.8)
[2022-01-24] MEDS ORDERED: bisacodyL 5 MG TABEC PO SCH (20:00)
--- NOTE | 2022-01-25 06:04 | Obstetrical Progress Note ---
Date of Service January 25, 2022 Assessment & Plan (1) Encounter for care and examination after delivery: Plan: Patient is a 36-year-old now female status post postop day 2. -GBS(-), Rubella immune, O+, Antibody negative -Continue routine care -Pain control with tylenol, Ibuprofen, oxycodone -Ambulation as tolerated and encouraged -Encouraged , discuss with counsellor if necessary, continue supplementing with formula -Hgb 10.3 yesterday, today's is pending -OB f/u appointment in [address] Rosario Admission and Anticipated Discharge Date Admission Date: January 22, 2022 Supervising Physician Co-Signing Physician Notes Resident Physician Supervision Note: I interviewed and examined the patient. Discussed with Dr. Adorno and agree with findings and plan as documented in the note. Any exceptions or clarifications are listed here: [None] Documented By: Shari Grewal MD, FACOG Subjective Patient is a 36-year-old now G1, P1 female status post postop day 2. Patient overall doing well. Having 3 of 10 pain controlled pain medication. Patient is formula feeding by preference. Lochia moderate. Catheter has been removed. Patient is able to ambulate without difficulty. Reports passing gas but no bowel movement as of yet. Eating and drinking without nausea/vomiting. Urinating well. Denies fever, chills, chest pain, shortness of breath, nausea, vomiting, calf pain, or headache. Patient would like to stay another day. No other complaints at this time. Review of Systems Review of Systems: All systems reviewed & are unremarkable except as noted in HPI & below Physical Exam Constitutional: WD/WN, vitals as above + morbidly obese Eyes: + anicteric sclerae Neck: trachea midline, no thyromegaly normal visual inspection Respiratory: normal respiratory effort, lungs clear to auscultation Cardiovascular: Rate/Rhythm: regular rate and regular rhythm Extremities: + edema Gastrointestinal (Abdomen): normal bowel sounds, soft, nontender, no hepatosplenomegaly Percussion/Palpation: abdomen nontender Musculoskeletal: Head/Neck/Chest: normocephalic and head atraumatic Skin: no rashes, warm and dry Neurologic: moves all extremities Psychiatric: A+Ox3, euthymic affect Genitourinary: Uterus palpated at the level of the umbilicus, firm Results & Data ([facility]) Vital Signs (Past 12 Hours) Vital Signs Temp Pulse Resp BP Pulse Ox 01/24/22 23:05 36.6 C 73 18 120/78 97 01/24/22 20:15 36.6 C 84 20 120/79 96
[2022-01-25] MEDS: IBUPROFEN 600 MG TAB PO PRN ×2 (06:06→12:54)
[2022-01-25] MEDS: oxyCODONE/ACETAMINOPHEN 5mg/325mg TAB PO PRN ×2 (06:07→12:54)
[2022-01-25 07:35] LABS: Hematocrit (blood only) 29.3 % (37-47); Hemoglobin 9.6 g/dL (12.0-16.0)
[2022-01-25] MEDS: PRENATAL VITAMIN 1 TAB PO SCH (08:26)
[2022-01-25] MEDS: DOCUSATE SODIUM 100 MG CAP PO SCH ×2 (08:26→20:26)
[2022-01-25] MEDS: SIMETHICONE 80 MG CHEW PO SCH ×4 (08:26→20:26)
[2022-01-25] MEDS: FERROUS SULFATE 325 MG TAB PO SCH (08:26)
[2022-01-25] MEDS ORDERED: bisacodyL 10 MG SUPP PR PRN (08:45)
--- NOTE | 2022-01-26 06:00 | Obstetrical Progress Note ---
Date of Service January 26, 2022 Assessment & Plan (1) Encounter for care and examination after delivery: Plan: Patient is a 36-year-old now female status post postop day 3. -GBS(-), Rubella immune, O+, Antibody negative -Continue routine care, d/c today, reviewed discharge instructions with patient -Pain control with tylenol, Ibuprofen, oxycodone -Ambulation as tolerated and encouraged -Encouraged , discuss with counsellor if necessary, continue supplementing with formula -Hgb 9.9 yesterday -OB f/u appointment in [address] Rosario Admission and Anticipated Discharge Date Admission Date: January 22, 2022 Supervising Physician Co-Signing Physician Notes Resident Physician Supervision Note: I interviewed and examined the patient. Discussed with Dr. Adorno and agree with findings and plan as documented in the note. Any exceptions or clarifications are listed here: POD#3 doing well. Desires discharge home. Instructions reviewed, followup in office 6w. Documented By: Elmira Alba, DO Subjective Patient is a 36-year-old now G1, P1 female status post postop day 3. Patient overall doing well. Having 2 of 10 pain controlled pain medication. Patient is formula feeding by preference. Lochia moderate. Patient is able to ambulate without difficulty. Reports passing gas but no bowel movement as of yet. Eating and drinking without nausea/vomiting. Urinating well. Denies fever, chills, chest pain, shortness of breath, nausea, vomiting, calf pain, or headache. Patient comfortable with going home today. No other complaints at this time. Review of Systems Review of Systems: All systems reviewed & are unremarkable except as noted in HPI & below Physical Exam Constitutional: WD/WN, vitals as above + morbidly obese Eyes: + anicteric sclerae Neck: trachea midline, no thyromegaly normal visual inspection Respiratory: normal respiratory effort, lungs clear to auscultation Cardiovascular: Rate/Rhythm: regular rate and regular rhythm Extremities: + edema Gastrointestinal (Abdomen): normal bowel sounds, soft, nontender, no hepatosplenomegaly Percussion/Palpation: abdomen nontender Musculoskeletal: Head/Neck/Chest: normocephalic and head atraumatic Skin: no rashes, warm and dry Neurologic: moves all extremities Psychiatric: A+Ox3, euthymic affect Genitourinary: Uterus palpated at the level of the umbilicus, firm Results & Data ([facility]) Vital Signs (Past 12 Hours) Vital Signs Temp Pulse Resp BP Pulse Ox 01/25/22 23:22 36.7 C 75 20 130/86 98 01/25/22 19:20 36.6 C 77 18 130/85 96
[2022-01-26] MEDS: SIMETHICONE 80 MG CHEW PO SCH (08:33)
[2022-01-26] MEDS: FERROUS SULFATE 325 MG TAB PO SCH (08:33)
[2022-01-26] MEDS: DOCUSATE SODIUM 100 MG CAP PO SCH (08:33)
[2022-01-26] MEDS: PRENATAL VITAMIN 1 TAB PO SCH (08:33)
[2022-01-26] MEDS: oxyCODONE/ACETAMINOPHEN 5mg/325mg TAB PO PRN (08:33)
[2022-01-26] MEDS: IBUPROFEN 600 MG TAB PO PRN (08:34)
--- NOTE | 2022-01-29 10:44 | Discharge Summary ---
Date of Service January 29, 2022 Discharge Data Consultations 01/22/22 07:40 Consult Anesthesiology Stat Procedures Performed Operation Date: 01/23/22 04:40 Actual Procedures p Primary Section for the of a live male child at 0812(Bilateral) - Yamilex Rosario MD Hospital Course (1) Encounter for care and examination after delivery: Patient requested, and was provided, with a section when she was unable to continue with planned induction of labor due to intolerable pain and inadequate relief despite multiple epidural placements and spinal medication doses. delivery itself was uncomplicated; see operative report for details. She was discharged to home in good condition on POD#3 with percocet for pain management. Coding Level of Care Code None Diagnoses Encounter for care and examination after delivery Z39.2
== END 2022-01-26 11:45 | disposition home or self-care (01) | DRG 788 ==
LOC: 4S1 07:31 → 4E2 01-23 11:46

== ENCOUNTER 2023-07-01 05:25 | Inpatient (IN) ==
--- NOTE | 2023-06-18 15:29 | History & Physical Report ---
Date of Service June 18, 2023 Assessment & Plan (1) Gestational diabetes mellitus (GDM) requiring insulin: (2) Polyhydramnios: (3) Elderly multigravida, currently : (4) Obesity affecting , antepartum: (5) Request for sterilization: (6) History of delivery, currently : Plan Patient will be admitted for plan repeat c/s on 07/01/23. She also desires sterilization and after discussion of options desires distal salpingectomies due to future cancer risk reduction. Risks, alternatives and complications of procedure reviewed with patient and include but are not limited to bleeding, infection, anesthesia, injury to bowel, bladder, vessels, nerves, ureters, injury to structures delayed complication, failure of procedure with resultant , ectopic which can be medical emergency, regret for having sterilization, deep venous thrombosis, pulmonary embolism, failure of incision to heal. Patient aware her obesity increases risks further for some of these things in particular. Also not sure her prior incision will be best incision for this delivery and she is understanding of that and ok with whatever needs to be done. Patient desires to proceed and consent signed. She is aware of preop and postop instructions and course. She will take 1/2 of her nph dose at bedtime night before surgery and aware of otherwise planning to be NPO after midnight. History of Present Illness Chief Complaint: planned cs and tubal Primary Care Provider: NO PCP 37yo at 39wk ega on the day of her admission for planned repeat c/s and tubal for desires sterilization. No rom, no vb. +FM. No ctx. course complicated by AMA, GDM on insulin , Obesity, Hx X1, Polyhydramnios, Desires sterilization. PNL RH pos, RI, gbs neg. OBH: cs x 1 GYNH: nl paps no stds Allergies Allergy/AdvReac Type Severity Reaction Status Date / Time No Known Allergies Allergy Verified 06/18/23 15:28 Home Medications Medication Instructions Recorded Confirmed Type prenat.vits,kaylin,[id number] 1 tab PO DAILY 08/07/21 06/18/23 History acetone (urine) test (Ketone Urine #50 ea 01/10/23 06/18/23 Rx Test strips) blood sugar diagnostic (OneTouch #150 ea 01/10/23 06/18/23 Rx Verio test strips) blood-glucose meter (OneTouch #1 ea 01/10/23 06/18/23 Rx Verio Reflect Meter) lancets 33 gauge (OneTouch Delica #150 ea 01/10/23 06/18/23 Rx Lancets) blood sugar diagnostic #150 ea 01/11/23 06/18/23 Rx insulin aspart U-100 100 unit/mL 40 unit subcut DAILY 05/02/23 06/18/23 History (3 mL) subcutaneous pen (Novolog FlexPen U-100 Insulin aspart) Patient History Medical History Abnormal Pap smear of cervix Chicken pox Encounter for induction of labor Encounter for care and examination after delivery Encounter for supervision of normal intrauterine in primigravida, antepartum Gestational diabetes History of COVID-19 Insulin controlled gestational diabetes mellitus (GDM) during Migraine PCOS (polycystic ovarian syndrome) Surgical History History of History of cholecystectomy History of tonsillectomy [place] teeth extracted Family History Mother Mouth cancer Grandmother (Maternal) Breast cancer Grandfather (Maternal) Hypertension High cholesterol Other Cancer Denies family history of Ovarian cancer Prostate cancer Lung cancer Colorectal cancer Social History Smoking Status: Never smoker Second Hand Exposure: No; Do You Dip or Chew Tobacco: No; Hx Alcohol Use: No Hx Substance Use: No Preferred Language: Arabic Communication Ability: Effective Jig Builder Required: No Beliefs That Will Affect Care: None marital status: Single marital status details: Nikko Pabon (37) [phone] Current Living Situation: Significant Other Current Living Situation Comment: Sig other and 1 cat ( FOB changing litter) current occupational status: employed current occupation: [employer] Feels Safe at Home: Yes Assistive Devices: None Review of Systems as per Subjective / HPI Physical Exam Constitutional: WD/WN, vitals as above Respiratory: normal respiratory effort, lungs clear to auscultation Cardiovascular: Rate/Rhythm: regular rate and regular rhythm Gastrointestinal (Abdomen): soft gravid nt, morbid obesity well healed c/s incision Musculoskeletal: tr edema nontender calves Neurologic: grossly normal Psychiatric: A+Ox3, euthymic affect Genitourinary: FHTs + Coding Level of Care Code None Diagnoses Gestational diabetes mellitus (GDM) requiring insulin O24.414 Polyhydramnios O40.9XX0 Elderly multigravida, currently O09.529 Obesity affecting , antepartum O99.210 Request for sterilization Z30.2 History of delivery, currently O34.219
--- NOTE | 2023-06-19 13:40 | Anesthesiology Consultation ---
Date of Service June 19, 2023 Assessment & Plan (1) Encounter for pre-operative examination: Infectious disease screening: Per assessment on 06/19/23: No known infectious disease contacts or current infectious disease symptoms. No noted Covid positive test result in past 90 days. Chart Review Chart Review: entry level sales consultant initiated History Surgery Operation Date: 07/01/23 08:50 Proposed Procedures p Section (Delivery of Baby Through Abdominal Incision) - Bisi Bradley MD, FACOG s with Bilateral Tubal Ligation - Bisi Bradley MD, FACOG Height/Weight Height: 5 ft 4 in Weight: 130.635 kg Allergies Allergy/AdvReac Type Severity Reaction Status Date / Time No Known Allergies Allergy Verified 06/19/23 13:16 Medications Home Medications Medication Instructions Recorded Confirmed Last Taken prenat.vits,kaylin,hzh-[id number] 1 tab PO HS 08/07/21 06/19/23 01/21/22 23:30 acetone (urine) test (Ketone Urine #50 ea 01/10/23 06/18/23 Unknown Test strips) blood sugar diagnostic (OneTouch #150 ea 01/10/23 06/18/23 Unknown Verio test strips) blood-glucose meter (OneTouch #1 ea 01/10/23 06/18/23 Unknown Verio Reflect Meter) lancets 33 gauge (OneTouch Delica #150 ea 01/10/23 06/18/23 Unknown Lancets) blood sugar diagnostic #150 ea 01/11/23 06/18/23 Unknown insulin aspart U-100 100 unit/mL 40 unit subcut HS 05/02/23 06/19/23 Unknown (3 mL) subcutaneous pen (Novolog FlexPen U-100 Insulin aspart) Past Medical History Medical History (Updated 06/19/23 @ 13:39 by Shari Johnson) Abnormal Pap smear of cervix hx Anemia Migraine History of COVID-19 06/2021- moderate symptoms (body aches, headaches) > resolved 12/2021 (home test and [facility])- mild symptoms > resolved Insulin controlled gestational diabetes mellitus (GDM) during PCOS (polycystic ovarian syndrome) Past Family History Family History Mother Mouth cancer Grandmother (Maternal) Breast cancer Grandfather (Maternal) Hypertension High cholesterol Other Cancer Denies family history of Ovarian cancer Prostate cancer Lung cancer Colorectal cancer Past Surgical History Surgical History (Updated 06/19/23 @ 13:40 by Shari Johnson) History of 01/2022 [facility] History of cholecystectomy [place] teeth extracted History of tonsillectomy Social History Smoking Status: Never smoker Do You Dip or Chew Tobacco: No Hx Alcohol Use: Yes alcohol intake frequency: holidays/special occasions only Alcohol Intake Frequency Comment: not while Hx Substance Use: No substance use type: does not use
[2023-07-01] MEDS ORDERED: ceFAZolin 3,000 MG in DEXTROSE 5% 50 ML IV SCH (06:00)
[2023-07-01] MEDS ORDERED: LACTATED RINGER'S 1,000 ML IV SCH ×2 (06:00→09:06)
[2023-07-01] MEDS ORDERED: CITRIC ACID/SODIUM CITRATE 15 ML UDC PO SCH (06:00)
[2023-07-01 06:18] LABS: Basophils # (auto) 0.02 K/uL (0.00-0.20); Basophils % (auto) 0.2 %; Eosinophils # (auto) 0.06 K/uL (0.00-0.50); Eosinophils % (auto) 0.6 %; Hematocrit (blood only) 33.4 % (37.0-47.0); Hemoglobin 10.8 g/dl (12.0-16.0); Lymphocytes # (auto) 1.82 K/uL (1.20-3.40); Lymphocytes % (auto) 17.7 %; Mean Corpuscular Hemoglobin 24.2 pg (25.0-34.0); Mean Corpuscular Hgb Conc 32.3 g/dL (32.0-36.0); Mean Corpuscular Volume 74.9 fL (80.0-100.0); Mean Platelet Volume 10.4 fL (9.4-12.4); Monocytes # (auto) 0.74 K/uL (0.11-0.59); Monocytes % (auto) 7.2 %; Neutrophils # (auto) 7.53 K/uL (1.40-6.50); Neutrophils % (auto) 73.3 %; Platelet Count 214 K/uL (130-400); RDW Coefficient of Variation 17.2 % (11.5-14.5); RDW Standard Deviation 45.6 fL (36.4-46.3); Red Blood Count 4.46 M/uL (4.20-5.40); White Blood Count 10.27 K/ul (4.8-10.8)
[2023-07-01] MEDS ORDERED: INFLUENZA VIRUS QUADRIVALENT VACCINE (IIV4) 0.5 ML SYR IM ONE (07:00)
--- NOTE | 2023-07-01 07:15 | History & Physical Bridge Note ---
Date of Service July 01, 2023 History & Physical Bridge Note I have examined the patient, reviewed the History & Physical and in the interval since the performance of the History & Physical I have noted the following changes of clinical significance: no changes noted
[2023-07-01] MEDS ORDERED: MoRPHine SULFATE PF 1 MG/ML 10 ML AMP/VIAL ONE (07:24)
[2023-07-01] MEDS ORDERED: NALOXONE HCL 1 MG in SODIUM CHLORIDE 0.9% 1,000 ML IV PRN (07:35)
[2023-07-01] MEDS ORDERED: LACTATED RINGER'S 500 ML IV PRN (07:35)
[2023-07-01] MEDS ORDERED: ONDANSETRON INJ 2 MG/ML 2 ML VIAL IV PRN (07:35)
[2023-07-01] MEDS ORDERED: NALOXONE HCL 0.08 MG in SYRINGE 1.8 ML IV PRN (07:35)
[2023-07-01] MEDS ORDERED: PROMETHAZINE HCL 12.5 MG in SODIUM CHLORIDE 0.9% 50 ML IV PRN (07:35)
[2023-07-01] MEDS ORDERED: MoRPHine SULFATE PF 1 MG/ML 10 ML AMP/VIAL INT SPINAL ONE (07:35)
[2023-07-01] MEDS ORDERED: NALBUPHINE HCL 5 MG in SYRINGE 0 ML IV PRN (07:35)
[2023-07-01] MEDS ORDERED: diphenhydrAMINE 50 MG/ML VIAL IV PRN (07:35)
[2023-07-01] MEDS ORDERED: MEPERIDINE HCL 25 MG/ML CARP/VIAL IV PRN (07:35)
[2023-07-01] MEDS ORDERED: HYDROmorphone INJ 0.5 MG/0.5 ML SYR IV PRN (07:35)
[2023-07-01] MEDS ORDERED: ePHEDrine sulfate 50 MG/ML AMP IV PRN (07:35)
[2023-07-01] MEDS ORDERED: NALOXONE HCL 0.4 MG/1 ML VIAL/CARP IV PRN (07:35)
[2023-07-01] MEDS ORDERED: METOCLOPRAMIDE HCL 10 MG in SODIUM CHLORIDE 0.9% 50 ML IV PRN (07:35)
[2023-07-01] MEDS ORDERED: ACETAMINOPHEN 1,000 MG/100 ML VIAL IV PRN (07:35)
[2023-07-01] MEDS ORDERED: KETOROLAC 30 MG/ML VIAL IV PRN (07:35)
[2023-07-01] MEDS ORDERED: MoRPHine SULFATE 2 MG/ML CARP IV PRN (07:35)
[2023-07-01] MEDS ORDERED: DC INTRASPINAL MORPHINE SCH (07:45)
[2023-07-01] MEDS ORDERED: SODIUM CHLORIDE 0.9% 1,000 ML IV SCH (07:45)
[2023-07-01] MEDS ORDERED: NO NARCOTICS OR SEDATIVES SCH (07:45)
[2023-07-01] MEDS ORDERED: PHENYLEPHRINE 100MCG/ML 10ML SYR IV ONE ×2 (08:08→08:33)
[2023-07-01] MEDS ORDERED: ePHEDrine sulfate 50 MG/5 ML SYR ONE (08:09)
[2023-07-01] MEDS ORDERED: OXYTOCIN 10 UNITS/ML VIAL ONE (08:09)
[2023-07-01] MEDS ORDERED: ONDANSETRON INJ 2 MG/ML 2 ML VIAL ONE (08:17)
[2023-07-01] MEDS ORDERED: CARBOPROST TROMETHAMINE 250 MCG/ML AMPUL ONE (08:28)
--- NOTE | 2023-07-01 08:40 | Operative Report ---
PG Post Operative Report Pre & Post Diagnosis Operation Date: 07/01/23 07:30 <No data on this case meets the specified criteria> 1. 39 week iup 2. Prior section, desires repeat section 3. Desires sterilization I identified the patient and participated in the time-out.: Yes Procedure Operation Date: 07/01/23 07:30 <No data on this case meets the specified criteria> Repeat Low Transverse Section Bilateral Tubal Ligation via Distal Salpingectomies Surgeon Bisi Bradley MD, FACOG Gravity Manager Ari Estimated Blood Loss 600 Findings Consistent with Post-Op Diagnosis (viable female infant, apgars 9,9. normal uterus tubes and ovaries bilaterally) Fluids 1000cc Specimens bilateral fallopian tubes, cord blood Drains Hassan Anesthesia Type Spinal Complications none Disposition Accompanied Patient To Recovery: No Disposition: L&D Indications 37yo at 39wks for planned repeat c/s and desires sterilization. Description of Procedure The patient was taken to the operating room and identified. After adequate anesthesia was obtained, she was placed in the supine position with a leftward tilt on the operating table and prepped and draped in the usual sterile fashion. A hassan catheter had already been placed. The knife was used to create a Pfannensteil skin incision that was carried down to the underlying layer of fascia. The fascia was nicked in the midline and this opening was extended laterally using Glass scissors. Mandy clamps were placed on the superior and inferior aspect of the fascial incision tenting it upward and the underlying rectus muscles were dissected off the overlying fascia both sharply and bluntly using Glass scissors. The rectus muscles were bluntly in the midline. The peritoneal cavity was bluntly entered into. This opening was stretched. The bladder blade was placed. The vesicouterine peritoneum was elevated and opened up into and the bladder flap was created digitally and bladder blade was replaced. The knife was used to create a hysterotomy and this opening was stretched. The operators hand was placed through the hysterotomy and the bladder blade was removed. The head was elevated and flexed and with fundal pressure the head was delivered. M/N bulb suctioned and loose nuchal x 1 reduced. The shoulders and body were rapidly delivered. The cord was clamped and cut and the infant's mouth and nares were bulb suction. The infant was handed off to the awaiting pediatricians. Cord blood was obtained. The placenta was manually expressed. The uterus was exteriorized and cleared of all clots and debris. Dilute IV Pitocin was begun. The uterine tone was not improving and IM hemabate into the uterine muscle was given. Tone was improving. The hysterotomy was closed in a running interlocking fashion using 0 Vicryl followed by a single figure of eight suture of 0 Vicryl left of midline for excellent hemostasis. . The hysterotomy was hemostatic. The bilateral fallopian tubes were completely transected using the cautery and cutting instrument, ligasure. Operative sites were hemostatic. The pelvis was suctioned. The uterus was returned to the abdomen. The gutters were cleared of all clots and debris. The hysterotomy was reinspected and noted to be hemostatic. The other operative sites were hemostatic. The fascia was then closed in running fashion using 0 Vicryl. The subcutaneous fat was copiously irrigated and reapproximated using 2-0 chromic. The skin was closed in a subcuticular fashion using 4-0 monocryl. At this point the procedure was terminated. The patient was transferred to the recovery room in stable condition. All sponge, lap and needle counts are correct x2. I attest to the content of the Intraoperative Record and any orders documented therein. Any exceptions are noted below. OB Procedure Charges 16810 [id number] Add on Tubal for C/S
[2023-07-01] MEDS ORDERED: HYDROCORTISONE ACETATE 25 MG SUPP PR PRN (09:06)
[2023-07-01] MEDS ORDERED: DIPHTHERIA/TETANUS/PERTUSSIS Vaccine (Tdap, Age 7+yrs) 0.5mL SYR/VL IM ONE (09:06)
[2023-07-01] MEDS ORDERED: SENNA 8.6 MG TAB PO PRN (09:06)
[2023-07-01] MEDS ORDERED: BENZOCAINE 20% SPRY 85 APPLN/85 GM CAN EXT PRN (09:06)
[2023-07-01] MEDS ORDERED: MAGNESIUM HYDROXIDE SUSP 30 ML UDC PO PRN (09:06)
--- NOTE | 2023-07-01 11:27 | Anesthesiology Progress Note ---
Date of Service July 01, 2023 Anesthesia Post Procedure Vital Signs Vital Signs: Temp Pulse Resp BP Pulse Ox 07/01/23 11:05 94 H 94 07/01/23 11:02 20 07/01/23 11:02 85 121/60 07/01/23 11:00 85 96 07/01/23 10:55 87 94 07/01/23 10:52 83 124/59 L 07/01/23 10:50 91 H 96 07/01/23 10:45 88 95 07/01/23 10:42 83 121/61 07/01/23 10:40 87 95 07/01/23 10:38 91 H 94 07/01/23 10:35 92 H 97 07/01/23 10:32 18 07/01/23 10:32 94 07/01/23 10:32 85 07/01/23 10:32 83 131/64 07/01/23 10:30 83 95 07/01/23 10:27 86 93 07/01/23 10:25 82 96 07/01/23 10:22 85 132/64 94 07/01/23 10:20 83 98 07/01/23 10:15 83 95 07/01/23 10:12 82 123/62 07/01/23 10:11 85 94 07/01/23 10:10 86 97 07/01/23 10:05 84 95 07/01/23 10:02 20 07/01/23 10:02 18 07/01/23 10:02 82 129/63 07/01/23 10:01 84 94 07/01/23 10:00 85 97 07/01/23 09:55 90 96 07/01/23 09:54 97 H 94 07/01/23 09:52 18 07/01/23 09:52 82 136/64 07/01/23 09:50 83 96 07/01/23 09:45 84 96 07/01/23 09:42 20 07/01/23 09:42 92 H 136/66 07/01/23 09:40 92 H 96 07/01/23 09:37 89 94 07/01/23 09:35 91 H 96 07/01/23 09:34 86 133/60 07/01/23 09:32 20 07/01/23 09:30 89 97 07/01/23 09:25 97 H 96 07/01/23 09:22 20 07/01/23 09:22 95 H 121/57 L 07/01/23 09:20 94 H 96 07/01/23 09:15 98 H 97 07/01/23 09:12 20 07/01/23 09:12 94 H 142/73 H 07/01/23 09:10 95 H 98 07/01/23 09:05 96 H 97 07/01/23 09:02 98 H 137/77 07/01/23 09:00 100 H 97 07/01/23 08:55 36.4 C L 20 07/01/23 08:55 96 H 96 07/01/23 08:52 98 H 130/75 07/01/23 08:50 98 H 96 07/01/23 08:45 100 H 97 07/01/23 08:42 101 H 134/77 07/01/23 08:40 101 H 98 07/01/23 06:11 86 124/69 07/01/23 05:36 36.5 C 18 Pain Intensity Lower Abdomen: Pain Intensity: 5 Transfer of Care Handoff Completed per policy Notes Mental Status: alert / awake / arousable and participated in evaluation Nausea / Vomiting: adequately controlled Pain: adequately controlled Airway Patency, RR, SpO2: stable & adequate BP & HR: stable & adequate Hydration State: stable & adequate Neuraxial Anesthesia: was administered and sensory block is resolving Anesthetic Complications: no major complications apparent and Pt Satisfied with anesthetic care
[2023-07-01] MEDS ORDERED: CARBOPROST TROMETHAMINE 250 MCG/ML AMPUL IM ONE (11:39)
[2023-07-01] MEDS: OXYTOCIN 20 UNITS/LR 1,002 ML IV SCH ×2 (12:12→19:45)
[2023-07-01] MEDS: SIMETHICONE 80 MG CHEW PO SCH ×3 (15:16→21:03)
[2023-07-01] MEDS: DOCUSATE SODIUM 100 MG CAP PO SCH (21:03)
[2023-07-01] MEDS: PRENATAL VITAMIN 1 TAB PO SCH (21:03)
[2023-07-02] MEDS ORDERED: diphenhydrAMINE Capsule 25 MG CAP PO PRN (01:36)
[2023-07-02] MEDS ORDERED: PROMETHAZINE HCL 25 MG in SODIUM CHLORIDE 0.9% 50 ML IV PRN (01:36)
[2023-07-02] MEDS ORDERED: ONDANSETRON INJ 2 MG/ML 2 ML VIAL IV PRN (01:36)
[2023-07-02] MEDS ORDERED: KETOROLAC 30 MG/ML VIAL IV PRN (01:36)
[2023-07-02] MEDS ORDERED: diphenhydrAMINE 50 MG/ML VIAL IV PRN (01:36)
[2023-07-02] MEDS: IBUPROFEN 600 MG TAB PO PRN ×3 (01:40→19:25)
[2023-07-02] MEDS: oxyCODONE/ACETAMINOPHEN 5mg/325mg TAB PO PRN ×3 (01:40→19:24)
--- NOTE | 2023-07-02 04:31 | Obstetrical Progress Note ---
Date of Service <Cyrus Sow DO - Last Filed: 07/02/23 06:07> July 02, 2023 Assessment & Plan <Cyrus Sow DO - Last Filed: 07/02/23 06:07> (1) Status post delivery: 37 year old female, , POD#1 s/p : Tolerating clear liquids, able to stand but has not yet ambulated, voiding well Vitals reviewed, WNL Pain well controlled with Percocet and Motrin Routine post-op care - OOB, ambulation, diet progression as tolerated Will have 6 week follow up with Dr. Bradley <Elmira Alba, DO - Last Filed: 07/02/23 07:58> (1) Status post delivery: Subjective <Cyrus Sow DO - Last Filed: 07/02/23 06:07> Ambulation: limited ambulation (able to stand but not walk) Voiding: no voiding problems Passing Gas:: No Diet Tolerance:: clear liquids Lochia:: Large Feeding Type:: bottle feeding Pain adequately controlled with Percocet and Motrin Review of Systems -Denies fever or chills -Denies dyspnea, chest pain, or palpitations -Denies dysuria -Denies headache or changes in vision Physical Exam <Cyrus Sow DO - Last Filed: 07/02/23 06:07> General: Alert and oriented. No acute distress Cardiac: Regular rate and rhythm, no murmurs appreciated Respiratory: Lungs clear to auscultation bilaterally, No increased work of breathing Abdominal: Soft, non-tender, non-distended. Bowel sounds present. Uterus: Uterine fundus firm, palpable below umbilicus Extremities: No lower extremity edema, calves non-tender bilaterally Results & Data <Cyrus Sow DO - Last Filed: 07/02/23 06:07> Vital Signs (Past 12 Hours) Vital Signs Temp Pulse Resp BP Pulse Ox Pulse Ox O2 Del Method 07/02/23 03:50 36.5 C 84 18 115/75 Room Air 07/02/23 01:35 16 94 07/02/23 00:36 18 96 07/02/23 00:00 36.8 C 89 16 119/79 Room Air 07/02/23 00:00 94 07/01/23 23:39 16 94 07/01/23 22:32 16 92 07/01/23 21:10 16 94 07/01/23 20:29 18 91 07/01/23 19:15 16 96 07/01/23 19:15 36.6 C 84 16 115/75 96 Room Air 07/01/23 19:15 96 07/01/23 18:00 18 95 O2 Del Method 07/02/23 03:50 07/02/23 01:35 07/02/23 00:36 07/02/23 00:00 07/02/23 00:00 Room Air 07/01/23 23:39 07/01/23 22:32 07/01/23 21:10 07/01/23 20:29 07/01/23 19:15 07/01/23 19:15 07/01/23 19:15 Room Air 07/01/23 18:00 Supervising Physician <Elmira Alba, - Last Filed: 07/02/23 07:58> Co-Signing Physician Notes Resident Physician Supervision Note: I was present with Dr. Sow during the history and exam. I discussed the case with the resident and agree with the findings and plan as documented in the note. Any exceptions or clarifications are listed here: POD#1 doing well. Incision CDI. Abd soft. Routine postop care. Documented By: Elmira Alba DO Resident Activity Tracking <Cyrus Sow DO - Last Filed: 07/02/23 06:07> Resident Involvement: Resident Care Provided Care Provided: OB Delivery
[2023-07-02 06:43] LABS: Basophils # (auto) 0.01 K/uL (0.00-0.20); Basophils % (auto) 0.1 %; Eosinophils # (auto) 0.03 K/uL (0.00-0.50); Eosinophils % (auto) 0.3 %; Hematocrit (blood only) 32.1 % (37.0-47.0); Immature Granulocytes # (auto) 0.05 K/uL (0.01-0.20); Immature Granulocytes % (auto) 0.5 %; Lymphocytes # (auto) 1.42 K/uL (1.20-3.40); Mean Corpuscular Hemoglobin 24.1 pg (25.0-34.0); Mean Corpuscular Hgb Conc 31.2 g/dL (32.0-36.0); Mean Corpuscular Volume 77.3 fL (80.0-100.0); Mean Platelet Volume 10.6 fL (9.4-12.4); Monocytes # (auto) 0.73 K/uL (0.11-0.59); Monocytes % (auto) 7.7 %; Neutrophils # (auto) 7.25 K/uL (1.40-6.50); Neutrophils % (auto) 76.4 %; Platelet Count 161 K/uL (130-400); RDW Coefficient of Variation 17.3 % (11.5-14.5); Red Blood Count 4.15 M/uL (4.20-5.40); White Blood Count 9.49 K/ul (4.8-10.8)
[2023-07-02] MEDS: PRENATAL VITAMIN 1 TAB PO SCH (08:08)
[2023-07-02] MEDS: FERROUS SULFATE 325 MG TAB PO SCH (08:08)
[2023-07-02] MEDS: DOCUSATE SODIUM 100 MG CAP PO SCH ×2 (08:08→21:11)
[2023-07-02] MEDS: SIMETHICONE 80 MG CHEW PO SCH ×4 (08:08→21:11)
[2023-07-02] MEDS ORDERED: bisacodyL 5 MG TABEC PO SCH (20:00)
--- NOTE | 2023-07-03 04:37 | Obstetrical Progress Note ---
Date of Service <Cyrus Sow DO - Last Filed: 07/03/23 06:15> July 03, 2023 Assessment & Plan <Cyrus DO Juanjose - Last Filed: 07/03/23 06:15> (1) Status post delivery: 37 year old female, , POD#2 s/p : Eating well, voiding well, ambulating well Vitals reviewed, WNL Pain well controlled with Percocet and Motrin Routine post-op care - OOB, ambulation, diet progression as tolerated Will have 6 week follow up with Dr. Bradley <Jim Kerr MD - Last Filed: 07/04/23 09:37> (1) Status post delivery: Subjective <Cyrus Sow DO - Last Filed: 07/03/23 06:15> Ambulation: ambulating normally Voiding: no voiding problems Passing Gas:: Yes Diet Tolerance:: regular diet Lochia:: Moderate Feeding Type:: bottle feeding Pain well controlled with Percocet and Motrin Review of Systems -Denies fever or chills -Denies dyspnea, chest pain, or palpitations -Denies dysuria -Denies headache or changes in vision Physical Exam <Cyrus Sow DO - Last Filed: 07/03/23 06:15> General: Alert and oriented. No acute distress Cardiac: Regular rate and rhythm, no murmurs appreciated Respiratory: Lungs clear to auscultation bilaterally, No increased work of breathing Abdominal: Soft, non-tender, non-distended. Bowel sounds present. Uterus: Uterine fundus firm, palpable below umbilicus Extremities: No lower extremity edema, calves non-tender bilaterally Supervising Physician <Jim Kerr MD - Last Filed: 07/04/23 09:37> Co-Signing Physician Notes Patient seen with resident and agree with the above findings and plan. Stable for discharge Resident Activity Tracking <Cyrus Sow DO - Last Filed: 07/03/23 06:15> Resident Involvement: Resident Care Provided Care Provided: OB Delivery
[2023-07-03 06:54] LABS: Hematocrit (blood only) 31.9 % (37.0-47.0)
[2023-07-03] MEDS ORDERED: bisacodyL 10 MG SUPP PR PRN (08:38)
[2023-07-03] MEDS: SIMETHICONE 80 MG CHEW PO SCH (08:57)
[2023-07-03] MEDS: DOCUSATE SODIUM 100 MG CAP PO SCH (08:57)
[2023-07-03] MEDS: FERROUS SULFATE 325 MG TAB PO SCH (08:57)
[2023-07-03] MEDS: PRENATAL VITAMIN 1 TAB PO SCH (08:58)
--- NOTE | 2023-07-04 12:06 | Discharge Summary ---
Date of Service Date of admission:July 01, 2023 Date of discharge: Admission HPI Per Admitting Provider 37yo at 39wk ega on the day of her admission for planned repeat c/s and tubal for desires sterilization. No rom, no vb. +FM. No ctx. course complicated by AMA, GDM on insulin , Obesity, Hx X1, Polyhydramnios, Desires sterilization. PNL RH pos, RI, gbs neg. OBH: cs x 1 GYNH: nl paps no stds Discharge Data Consultations 07/01/23 05:28 Consult Anesthesiology Stat Procedures Performed Operation Date: 07/01/23 07:30 Actual Procedures p Repeat Low Transverse Section s with Bilateral Tubal Ligation via distal salpingectomies Hospital Course (1) Status post delivery: The patient underwent the above stated procedure without incident and her postoperative course and recovery was uncomplicated. On her postoperative day #2 she was tolerating a regular diet, voiding spontaneously, ambulating without problem and was using oral meds for adequate pain control. Her postoperative hemoglobin was 10.0. She was given written and verbal discharge instructions and told to followup in office at 6wks. She was given appropriate pain medicine prescriptions. Coding Level of Care Code None Diagnoses Status post delivery Z98.891
== END 2023-07-03 10:50 | disposition home or self-care (01) | DRG 785 ==
LOC: 4S1 05:25 → EDSTATUS 10:10 → 4E2 11:22
PROC: M.PPTLD (2023-07-01 07:30)